=== PATIENT | female | born 1970 | race Hispanic/Latino ===

== ENCOUNTER 2018-03-15 07:34 | Emergency (ER) | payer OTHER, SELFPAY ==
--- NOTE | 2018-03-15 09:02 | RAD REPORT ---
EXAM DESCRIPTION: CT - Stone Protocol - 03/15/2018 8:40 am CLINICAL HISTORY: Abdominal pain. Back pain for 1 week COMPARISON: 2016 TECHNIQUE: Computed axial tomography of the abdomen pelvis was obtained without oral or IV contrast. Lack of IV and oral contrast limits evaluation of solid organs, bowel, and vessels. Coronal reformat abhishek images were obtained and reviewed. All CT scans are performed using dose optimization technique as appropriate and may include automated exposure control or mA/KV adjustment according to patient size. FINDINGS: Small bilateral renal calculi are present. Mild to moderate left hydronephrosis is seen. W ithin the distal left ureter is a 5 millimeter calculus Hounsfield unit 850 The liver, spleen, pancreas and adrenals appear grossly normal There is no evidence of diverticulitis. A 4 centimeter soft tissue structure within the cecum is with out significant change IMPRESSION: 5 millimeter calculus distal left ureter resulting in mild to moderate left hydronephros is 4 centimeter soft tissue structure within the cecum without obvious change from the prior exam. This may represent stool or a mass
[2018-03-15] MEDS ORDERED: TAMSULOSIN 0.4 MG SR CAP ONE (09:28)
--- NOTE | 2018-03-15 09:38 | EDPHYS ---
Physician Documentation [facility] Name: Louise Copeland Age: 47 yrs Sex: Female : 1970 Arrival Date: 03/15/2018 Time: 07:37 Bed 7 Private MD: Srinath Starks R ED Physician Ricardo Angeles HPI: 03/15 09:41 This 47 yrs old Female presents to ER via Ambulatory with complaints of Back snw Pain, Abdominal Pain. 08:02 The symptoms are located in the left low back and left mid back. Onset: The snw symptoms/episode began/occurred gradually, 1 week(s) ago, and became worse this morning, awoke pt at 4 o'clock. The pain radiates to the left low back. Associated signs and symptoms: Pertinent positives: none. The problem was sustained from unknown cause. Severity of symptoms: At their worst the symptoms were moderate, severe. The patient has experienced a previous episode. It is unknown whether or not the patient has recently seen a physician. hx of rheumatoid arthritis, + T#3, gabapentin, steroids, hx of kidney stones, . 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 - Social history:: Smoking status: Patient/guardian denies using tobacco. - Ebola Screening: : Patient negative for fever greater than or equal to 101.5 degrees Fahrenheit, and additional compatible Ebola Virus Disease symptoms Patient denies exposure to infectious person Patient denies travel to an Ebola-affected area in the 21 days before illness onset No symptoms or risks identified at this time. ROS: 08:01 Constitutional: Negative for fever, chills, and weight loss, Eyes: Negative for injury, snw pain, redness, and discharge, ENT: Negative for injury, pain, and discharge, Neck: Negative for injury, pain, and swelling, Cardiovascular: Negative for chest pain, palpitations, and edema, Respiratory: Negative for shortness of breath, cough, wheezing, and pleuritic chest pain, : Negative for injury, bleeding, discharge, and swelling, positive dysuria last week MS/Extremity: Negative for injury and deformity, Skin: Negative for injury, rash, and discoloration, Neuro: Negative for headache, weakness, numbness, tingling, and seizure. 08:01 Abdomen/GI: Positive for abdominal pain, of the suprapubic area and left lower quadrant. 08:01 Back: Positive for flank pain, on the left. Exam: 08:01 Constitutional: This is a well developed, well nourished patient who is awake, alert, snw and in no acute distress. Head/Face: Normocephalic, atraumatic. Eyes: Pupils equal round and reactive to light, extra-ocular motions intact. Lids and lashes normal. Conjunctiva and sclera are non-icteric and not injected. Cornea within normal limits. Periorbital areas with no swelling, redness, or edema. ENT: Nares patent. No nasal discharge, no septal abnormalities noted. Tympanic membranes are normal and external auditory canals are clear. Oropharynx with no redness, swelling, or masses, exudates, or evidence of obstruction, uvula midline. Mucous membranes moist. Neck: Trachea midline, no thyromegaly or masses palpated, and no cervical lymphadenopathy. Supple, full range of motion without nuchal rigidity, or vertebral point tenderness. No Meningismus. Chest/axilla: Normal chest wall appearance and motion. Nontender with no deformity. No lesions are appreciated. Cardiovascular: Regular rate and rhythm with a normal S1 and S2. No gallops, murmurs, or rubs. Normal PMI, no JVD. No pulse deficits. Respiratory: Lungs have equal breath sounds bilaterally, clear to auscultation and percussion. No rales, rhonchi or wheezes noted. No increased work of breathing, no retractions or nasal flaring. Abdomen/GI: Soft, non-tender, with normal bowel sounds. No distension or tympany. No guarding or rebound. No evidence of tenderness throughout. Back: No spinal tenderness. No costovertebral tenderness. Full range of motion. Skin: Warm, dry with normal turgor. Normal color with no rashes, no lesions, and no evidence of cellulitis. MS/ Extremity: Pulses equal, no cyanosis. Neurovascular intact. Full, normal range of motion. Neuro: Awake and alert, GCS 15, oriented to person, place, time, and situation. Cranial nerves II-XII grossly intact. Motor strength 5/5 in all extremities. Sensory grossly intact. Cerebellar exam normal. Normal gait. Psych: Awake, alert, with orientation to person, place and time. Behavior, mood, and affect are within normal limits. Vital Signs: 09:00 BP 144 / 70; Pulse 88; Resp 16 S; Temp 98.1; Pulse Ox 97% ; iw MDM: 07:51 Patient medically screened. snw 09:40 Data reviewed: vital signs, nurses notes. Data interpreted: Pulse oximetry: on room air snw is 97 %. Interpretation: normal. Counseling: I had a detailed discussion with the patient and/or guardian regarding: the historical points, exam findings, and any diagnostic results supporting the discharge/admit diagnosis, the presence of at least one elevated blood pressure reading (>120/80) during this emergency department visit, lab results, radiology results, the need for outpatient follow up, for definitive care, to return to the emergency department if symptoms worsen or persist or if there are any questions or concerns that arise at home. Special discussion: Based on the patient's Hx, exam, and Dx evaluation, there is no indication for emergent surgery or inpatient Tx. It is understood by the patient/guardian that if the Sx's persist or worsen they need to return immediately for re-evaluation. Based on the history and exam findings, there is no indication for further emergent testing or inpatient evaluation. I discussed with the patient/guardian the need to see the primary care provider for further evaluation of the symptoms. 03/15 08:00 Order name: Urine Microscopic Only snw 03/15 08:00 Order name: Urine Culture snw 03/15 08:00 Order name: CT Stone Protocol; Complete Time: 09:09 snw 03/15 08:04 Order name: Urine Dipstick--Ancillary (enter results) eb 03/15 08:04 Order name: Urine --Ancillary (enter results) eb 03/15 08:00 Order name: Urine Test (obtain specimen); Complete Time: 08:06 snw Administered Medications: 09:32 Drug: Flomax 0.4 mg Route: PO; hj 09:51 Follow up: Response: No adverse reaction Point of Care Testing: Urine : 08:06 hCG Reading: Negative; eb Disposition: 03/16 07:10 Co-signature as Attending Physician, Ricardo Angeles MD. Disposition: 03/15/18 09:38 Discharged to Home. Impression: Hydronephrosis with renal and ureteral calculous obstruction, Essential (primary) hypertension. - Condition is Stable. - Discharge Instructions: Hypertension, Kidney Stones, Hydronephrosis, Dietary Guidelines to Help Prevent Kidney Stones, DASH Eating Plan, Managing Your High Blood Pressure. - Prescriptions for Tylenol- Codeine #3 300-30 mg Oral Tablet - take 2 tablets by ORAL route every 6 hours As needed; 15 tablet. Zofran 4 mg Oral Tablet - take 1 tablet by ORAL route every 12 hours As needed; 20 tablet. Flomax 0.4 mg Oral Capsule, Sust. Release 24 hr - take 1 capsule by ORAL route once daily 1/2 hour following the same meal each day; 15 capsule. Cipro 500 mg Oral Tablet - take 1 tablet by ORAL route every 12 hours for 7 days; 14 tablet. - Work release form, Medication Reconciliation Form, Thank You Letter, Antibiotic Education, Prescription Opioid Use form. - Follow up: Srinath Starks MD; When: 1 - 2 days; Reason: Recheck today's complaints, Continuance of care, Re-evaluation by your physician. Follow up: Emergency Department; When: As needed; Reason: Worsening of condition. Signatures: Dispatcher [employer] EDMS Jerry Huerta RN RN sg Therrien, Shelly, LIFE INSURANCE UNDERWRITER-C LIFE INSURANCE UNDERWRITER-Csnw Maria Luisa Dean RN RN iw Joaquin, Henry, RN RN hj Starr, Gregory, MD MD gs Corrections: (The following items were deleted from the chart) 03/15 09:50 09:38 03/15/2018 09:38 Discharged to Home. Impression: Hydronephrosis with renal and hj ureteral calculous obstruction; Essential (primary) hypertension. Condition is Stable. Forms are Medication Reconciliation Form, Thank You Letter, Antibiotic Education, Prescription Opioid Use. Follow up: Srinath Starks; When: 1 - 2 days; Reason: Recheck today's complaints, Continuance of care, Re-evaluation by your physician. Follow up: Emergency Department; When: As needed; Reason: Worsening of condition. snw
--- NOTE | 2018-03-15 09:38 | ER ---
Nurse's Notes [facility] Name: Louise Copeland Age: 47 yrs Sex: Female : 1970 Arrival Date: 03/15/2018 Time: 07:37 Bed 7 Private MD: Srinath Starks R Diagnosis: Hydronephrosis with renal and ureteral calculous obstruction;Essential (primary) hypertension Presentation: 03/15 08:00 Presenting complaint: Patient states: pt c/o left lower back pain, difficulty iw urinating. Transition of care: patient was not received from another setting of care. Onset of symptoms was March 15, 2018. Risk Assessment: Do you want to hurt yourself or someone else? Patient reports no desire to harm self or others. Initial Sepsis Screen: Does the patient meet any 2 criteria? No. Patient's initial sepsis screen is negative. Does the patient have a suspected source of infection? No. Patient's initial sepsis screen is negative. Care prior to arrival: None. 08:00 Method Of Arrival: Ambulatory iw 08:00 Acuity: RUMA 3 iw Triage Assessment: 09:48 General: Appears in no apparent distress. uncomfortable, Behavior is calm, cooperative, hj appropriate for age. Pain: Complains of pain in left mid back and left low back and left lower quadrant and suprapubic area. Musculoskeletal: Amputation of . 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 - Social history:: Smoking status: Patient/guardian denies using tobacco. - Ebola Screening: : Patient negative for fever greater than or equal to 101.5 degrees Fahrenheit, and additional compatible Ebola Virus Disease symptoms Patient denies exposure to infectious person Patient denies travel to an Ebola-affected area in the 21 days before illness onset No symptoms or risks identified at this time. Screenin:00 Abuse screen: Denies threats or abuse. Denies injuries from another. Nutritional hj screening: No deficits noted. Tuberculosis screening: No symptoms or risk factors identified. Fall Risk None identified. Vital Signs: 09:00 BP 144 / 70; Pulse 88; Resp 16 S; Temp 98.1; Pulse Ox 97% ; iw ED Course: 07:37 Patient arrived in ED. mr 07:38 Srinath Starks MD is Private Physician. mr 07:51 [facility] snw 07:51 Ricardo Angeles MD is Attending Physician. snw 08:00 Urine collected: clean catch specimen, carolyn colored. eb 08:21 Jerry Huerta, RN is Primary Nurse. sg 08:31 Triage completed. iw 08:35 CT completed. Patient tolerated procedure well. Patient moved to CT via wheelchair. vr Patient moved back from CT. 08:40 CT Stone Protocol In Process Unspecified. EDMS 09:37 Srinath Starks MD is Referral Physician. snw 09:49 No provider procedures requiring assistance completed. Patient did not have IV access hj during this emergency room visit. 09:49 Arm band placed on right wrist. hj 09:49 Patient has correct armband on for positive identification. Placed in gown. Bed in low hj position. Call light in reach. Side rails up X 1. Administered Medications: 09:32 Drug: Flomax 0.4 mg Route: PO; hj 09:51 Follow up: Response: No adverse reaction hj Point of Care Testing: Urine : 08:06 hCG Reading: Negative; eb Outcome: 09:38 Discharge ordered by . snw 09:50 Discharged to home ambulatory. hj 09:50 Condition: stable 09:50 Discharge instructions given to patient, Instructed on discharge instructions, follow up and referral plans. medication usage, Demonstrated understanding of instructions, follow-up care, medications, Prescriptions given X 4. 09:50 Patient left the ED. hj Signatures: Dispatcher [employer] EDME Jerry Huerta RN RN Evie Shine FNP-C FNP-Keila Gonzalez mr DeanMaria Luisa RN RN iw Davis, Victoria vr Mihai Gtz RN RN Marcia Bailey
[2018-03-15 09:55] VITALS: BP 144/70; TEMP 98.1; O2SAT 97
[2018-03-15 10:26] LABS: Urine Bacteria >50 /HPF (<20); Urine RBC TNTC /HPF (NONE SEEN)
[2018-03-15 10:27] LABS: Calcium Oxalate Crystals- Ur PRESENT (NONE SEEN); Urine Amorphous Sediment 1+ /HPF (NONE SEEN); Urine Culture Reflex Order NOT NEEDED; Urine Mucus 1+ /HPF (NONE SEEN)
[2018-03-15 15:44] LABS: Urine Blood 3+ (NEG); Urine Glucose NEGATIVE (NEG); Urine Protein 2+ (NEG); Urine pH 5.5 (5.0-7.0)
== END 2018-03-15 09:50 | disposition home or self-care (01) ==
LOC: ER 07:34
DX: N13.2 Hydronephrosis with renal and ureteral calculous obstruction (principal); I10 Essential (primary) hypertension; E11.9 Type 2 diabetes mellitus without complications; Z79.82 Long term (current) use of aspirin; Z79.4 Long term (current) use of insulin; Z88.8 Allergy status to other drugs, medicaments and biological substances
CPT/HCPCS: 74176; 76377; 81003; 81015; 81025; 87086; 87088; 99284

== ENCOUNTER 2019-04-18 23:10 | Emergency (ER) | payer SELFPAY ==
[2019-04-19] MEDS ORDERED: NA CHLORIDE 0.9% 1,000 ML ONE (00:18)
[2019-04-19] MEDS ORDERED: KETOROLAC 30 MG/ML INJ ONE (00:18)
[2019-04-19] MEDS ORDERED: ONDANSETRON 4 MG/2 ML VIAL ONE (00:18)
[2019-04-19] MEDS ORDERED: MORPHINE 4 MG/ML SYR ONE (00:18)
[2019-04-19 00:39] LABS: Absolute Lymphocytes (CBC) 2.4 K/uL (0.7-4.9); Basophils % 0.4 % (0-1.3); Hematocrit 37.3 % (36.0-45.0); Lymphocytes % 20.2 % (15.3-44.8); Protime INR 1.03; RBC Red Blood Cell Count 4.04 M/uL (3.86-4.86)
[2019-04-19 00:52] LABS: ALT/SGPT 24 U/L (12-78); AST/SGOT 12 U/L (15-37); Albumin 3.4 g/dL (3.4-5.0); Alkaline Phosphatase 92 U/L (45-117); BUN Blood Urea Nitrogen 21 mg/dL (7-18); Bicarbonate 23 mmol/L (21-32); Bilirubin Direct < 0.1 mg/dL (0-0.2); Bilirubin Total 0.2 mg/dL (0.2-1.0); Glucose Level 216 mg/dL (74-106); Lipase 81 U/L (73-393); Magnesium 1.9 mg/dL (1.8-2.4); NT PRO-BNP 97 pg/mL (<125); Potassium 3.8 mmol/L (3.5-5.1); Protein, Total 6.8 g/dL (6.4-8.2); Sodium Level 142 mmol/L (136-145); Troponin (Emerg Dept Use Only) < 0.02 ng/mL (0.0-0.045)
[2019-04-19] MEDS ORDERED: AZITHROMYCIN 250 MG TAB ONE (02:13)
[2019-04-19] MEDS ORDERED: CEFTRIAXONE/SWI 1gm 1 GM/10 ML SYR ONE (02:14)
--- NOTE | 2019-04-19 03:10 | ER ---
Nurse's Notes [facility] Name: Louise Copeland Age: 48 yrs Sex: Female : 1970 Arrival Date: 04/18/2019 Time: 23:15 Bed 19 Private MD: Diagnosis: Chest pain on breathing;Chondrocostal junction syndrome [Tietze];Pneumonia due to other specified bacteria-pneumonitis;Gastro-esophageal reflux disease Presentation: 04/18 23:15 Presenting complaint: EMS states: "She is having left sided chest pain due to a jd3 possible left sided rib fracture. she was crying with pain on the scene saying she had left sided rib pain that wrapped around the left side of the chest. we started an IV and gave a total of 150 mcg of Fentanyl.". Transition of care: patient was not received from another setting of care. Onset of symptoms was April 18, 2019. Risk Assessment: Do you want to hurt yourself or someone else? Patient reports no desire to harm self or others. Initial Sepsis Screen: Does the patient meet any 2 criteria? No. Patient's initial sepsis screen is negative. Does the patient have a suspected source of infection? No. Patient's initial sepsis screen is negative. Care prior to arrival: Medication(s) given: Fentanyl 150 mcg. IV initiated. 20 GA, in the left antecubital area. 23:15 Method Of Arrival: EMS: [facility] jd3 23:15 Acuity: RUMA 3 jd3 Triage Assessment: 23:17 General: Appears in no apparent distress. uncomfortable, Behavior is calm, cooperative, cc3 appropriate for age. Pain: Complains of pain in left breast and left lateral anterior chest and left lateral posterior chest and chest. EENT: No signs and/or symptoms were reported regarding the EENT system. Neuro: Level of Consciousness is awake, alert, obeys commands, Oriented to person, place, time, situation, Appropriate for age. Cardiovascular: Heart tones S1 S2 present Capillary refill < 3 seconds Patient's skin is warm and dry. Respiratory: Airway is patent Respiratory effort is even, unlabored, Respiratory pattern is regular, symmetrical. GI: Abdomen is round non-distended. : No signs and/or symptoms were reported regarding the genitourinary system. Derm: Skin is intact, is healthy with good turgor, Skin is pink, warm \\T\\ dry. normal. Musculoskeletal: Circulation, motion, and sensation intact. Range of motion: intact in all extremities. 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 - Social history:: Smoking status: Patient uses tobacco products, smokes one-half pack cigarettes per day. - Ebola Screening: : Patient negative for fever greater than or equal to 101.5 degrees Fahrenheit, and additional compatible Ebola Virus Disease symptoms. - Family history:: not pertinent. Screenin:17 Abuse screen: Denies threats or abuse. Denies injuries from another. Nutritional cc3 screening: No deficits noted. Tuberculosis screening: No symptoms or risk factors identified. Fall Risk Ambulatory Aid- None/Bed Rest/Nurse Assist (0 pts). Gait- Normal/Bed Rest/Wheelchair (0 pts) Mental Status- Oriented to own ability (0 pts). Assessment: 23:17 General: see triage assessment. cc3 04/19 00:40 Reassessment: Patient appears in no apparent distress at this time. Patient and/or cc3 family updated on plan of care and expected duration. Pain level reassessed. Patient is alert, oriented x 3, equal unlabored respirations, skin warm/dry/pink. Patient's daughter named Eleni left her mobile number [phone]. 01:18 Reassessment: Patient appears in no apparent distress at this time. Patient and/or cc3 family updated on plan of care and expected duration. Pain level reassessed. Patient is alert, oriented x 3, equal unlabored respirations, skin warm/dry/pink. Patient states feeling better. Patient states symptoms have improved. 02:20 Reassessment: Patient appears in no apparent distress at this time. Patient and/or cc3 family updated on plan of care and expected duration. Pain level reassessed. Patient is alert, oriented x 3, equal unlabored respirations, skin warm/dry/pink. Patient states feeling better. Patient states symptoms have improved. 03:50 Reassessment: Patient appears in no apparent distress at this time. Patient and/or cc3 family updated on plan of care and expected duration. Pain level reassessed. Patient is alert, oriented x 3, equal unlabored respirations, skin warm/dry/pink. Dr. Salazar discharged the patient home with prescriptions given. IV cannula removed and patient left ER vitally stable and ambulatory with her . Incentive spirometry given to patient and taught how to use it. No valuables left in the patient's room. Patient denies pain at this time. Patient states feeling better. Patient states symptoms have improved. Vital Signs: 04/18 23:21 BP 124 / 57; Pulse 85; Resp 20 S; Temp 98.9(O); Pulse Ox 97% on R/A; Weight 111.58 kg jd3 (R); Height 5 ft. 4 in. (162.56 cm) (R); Pain 10; 04/19 00:30 BP 114 / 56; Pulse 75; Resp 16 S; Pulse Ox 99% on R/A; cc3 01:15 BP 111 / 51; Pulse 72; Resp 17 S; Pulse Ox 96% on R/A; cc3 02:25 BP 112 / 54; Pulse 75; Resp 17 S; Pulse Ox 97% on R/A; cc3 03:40 BP 115 / 57; Pulse 78; Resp 18 S; Pulse Ox 96% on R/A; cc3 04/18 23:21 Body Mass Index 42.23 (111.58 kg, 162.56 cm) jd3 ED Course: 04/18 23:15 Patient arrived in ED. jd3 23:17 Love Kaye is Primary Nurse. cc3 23:17 Patient has correct armband on for positive identification. Placed in gown. Bed in low cc3 position. Call light in reach. Side rails up X2. 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 Pulse ox on. NIBP on. 23:19 Pablo Salazar MD is Attending Physician. alicia 23:20 Triage completed. jd3 23:20 Maintain EMS IV. Dressing intact. Good blood return noted. Site clean \\T\\ dry. Gauge \\T\\ cc 3 site: gauge 20 left ACV. 23:23 Arm band placed on. jd3 04/19 01:19 XRAY Chest (1 view) In Process Unspecified. EDMS 02:22 CT Chest For PE Angio In Process Unspecified. EDMS 03:11 Huey Irvin MD is Referral Physician. alicia 03:11 Mali Meade MD is Referral Physician. alicia 03:50 No provider procedures requiring assistance completed. IV discontinued, intact, cc3 bleeding controlled, No redness/swelling at site. Pressure dressing applied. Administered Medications: 00:20 Drug: NS 0.9% 1000 ml Route: IV; Rate: 1 bolus; Site: left antecubital; cc3 01:30 Follow up: Response: No adverse reaction; IV Status: Completed infusion; IV Intake: cc3 1000ml 00:20 Drug: TORadol 30 mg Route: IVP; Site: left antecubital; cc3 01:00 Follow up: Response: No adverse reaction; Pain is decreased cc3 00:25 Drug: morphine 4 mg Route: IVP; Site: left antecubital; cc3 01:00 Follow up: Response: No adverse reaction; Pain is decreased; RASS: Alert and Calm (0) cc3 00:30 Drug: Zofran 4 mg Route: IVP; Site: left antecubital; cc3 01:00 Follow up: Response: No adverse reaction; Nausea is decreased cc3 02:40 Drug: Zithromax 500 mg Route: PO; cc3 03:30 Follow up: Response: No adverse reaction cc3 02:42 Drug: Rocephin 1 grams Route: IV; Rate: per protocol; Site: left antecubital; cc3 02:50 Follow up: Response: No adverse reaction; IV Status: Completed infusion; IV Intake: [id number] Intake: 01:30 IV: 1000ml; Total: 1000ml. cc3 02:50 IV: 10ml; Total: 1010ml. cc3 Outcome: 03:06 Discharge ordered by . alicia 03:50 Discharged to home ambulatory, with family. cc3 03:50 Condition: stable 03:50 Discharge instructions given to patient, family, Instructed on discharge instructions, follow up and referral plans. medication usage, Demonstrated understanding of instructions, follow-up care, medications, Prescriptions given X 5 03:59 Patient left the ED. cc3 Signatures: Dispatcher [employer] EDMS Pablo Salazar MD MD cha Davies, Jonathon, RN RN Love Fajardo cc3 Corrections: (The following items were deleted from the chart) 00:14 04/18 23:15 Presenting complaint: EMS states: "She is having left sided chest pain due jd3 to a possible left sided rib fracture. she was crying with pain on the scene saying she had left sided rib pain that rapped around the left side of the chest. we started an IV and gave a total of 150 mcg of Fentanyl." jd3
--- NOTE | 2019-04-19 03:12 | EDPHYS ---
Physician Documentation [facility] Name: Louise Copeland Age: 48 yrs Sex: Female : 1970 Arrival Date: 04/18/2019 Time: 23:15 Bed 19 Private MD: ED Physician Pablo Salazar HPI: 04/18 23:54 This 48 yrs old Female presents to ER via EMS with complaints of chest wall alicia pain and sob. 23:54 The patient or guardian reports chest pain that is located primarily in the anterior [facility] chest wall. Onset: The symptoms/episode began/occurred just prior to arrival. The pain radiates to left back. Associated signs and symptoms: Pertinent positives: cough, shortness of breath. The chest pain is described as aching, sharp. Duration: The patient or guardian reports multiple episodes, that wax and wane. Modifying factors: The symptoms are alleviated by remaining still, the symptoms are aggravated by breathing, cough, deep breath, movement, palpation of area, running, twisting torso, walking. Severity of pain: At its worst the pain was moderate in the emergency department the pain is unchanged. 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 - Social history:: Smoking status: Patient uses tobacco products, smokes one-half pack cigarettes per day. - Ebola Screening: : Patient negative for fever greater than or equal to 101.5 degrees Fahrenheit, and additional compatible Ebola Virus Disease symptoms. - Family history:: not pertinent. ROS: 23:54 Constitutional: Negative for fever, chills, and weight loss, Eyes: Negative for injury, alicia pain, redness, and discharge, ENT: Negative for injury, pain, and discharge, Neck: Negative for injury, pain, and swelling, Respiratory: Negative for shortness of breath, cough, wheezing, and pleuritic chest pain, Abdomen/GI: Negative for abdominal pain, nausea, vomiting, diarrhea, and constipation, Back: Negative for injury and pain, : Negative for injury, bleeding, discharge, and swelling, MS/Extremity: Negative for injury and deformity, Skin: Negative for injury, rash, and discoloration, Neuro: Negative for headache, weakness, numbness, tingling, and seizure, Psych: Negative for depression, anxiety, suicide ideation, homicidal ideation, and hallucinations, Allergy/Immunology: Negative for hives, rash, and allergies, Endocrine: Negative for neck swelling, polydipsia, polyuria, polyphagia, and marked weight changes, Hematologic/Lymphatic: Negative for swollen nodes, abnormal bleeding, and unusual bruising. 23:54 Cardiovascular: Positive for chest pain, of the chest. Exam: 23:54 Constitutional: This is a well developed, well nourished patient who is awake, alert, alicia and in no acute distress. Head/Face: Normocephalic, atraumatic. Eyes: Pupils equal round and reactive to light, extra-ocular motions intact. Lids and lashes normal. Conjunctiva and sclera are non-icteric and not injected. Cornea within normal limits. Periorbital areas with no swelling, redness, or edema. ENT: Nares patent. No nasal discharge, no septal abnormalities noted. Tympanic membranes are normal and external auditory canals are clear. Oropharynx with no redness, swelling, or masses, exudates, or evidence of obstruction, uvula midline. Mucous membranes moist. Neck: Trachea midline, no thyromegaly or masses palpated, and no cervical lymphadenopathy. Supple, full range of motion without nuchal rigidity, or vertebral point tenderness. No Meningismus. Cardiovascular: Regular rate and rhythm with a normal S1 and S2. No gallops, murmurs, or rubs. Normal PMI, no JVD. No pulse deficits. Respiratory: Lungs have equal breath sounds bilaterally, clear to auscultation and percussion. No rales, rhonchi or wheezes noted. No increased work of breathing, no retractions or nasal flaring. Abdomen/GI: Soft, non-tender, with normal bowel sounds. No distension or tympany. No guarding or rebound. No evidence of tenderness throughout. Back: No spinal tenderness. No costovertebral tenderness. Full range of motion. Skin: Warm, dry with normal turgor. Normal color with no rashes, no lesions, and no evidence of cellulitis. Neuro: Awake and alert, GCS 15, oriented to person, place, time, and situation. Cranial nerves II-XII grossly intact. Motor strength 5/5 in all extremities. Sensory grossly intact. Cerebellar exam normal. Normal gait. Psych: Awake, alert, with orientation to person, place and time. Behavior, mood, and affect are within normal limits. 23:54 Chest/axilla: Inspection: normal, Palpation: tenderness, that is moderate, of the left lateral posterior chest, left lateral anterior chest and left breast, Axilla: are normal, Breasts: are normal, no acute changes, Lymph nodes: lymphadenopathy is not appreciated. 23:54 Musculoskeletal/extremity: Circulation is intact in all extremities. Sensation intact. Compartment Syndrome exam of affected extremity: is normal. Weight bearing: able to fully bear weight, DVT Exam: no pain, no tenderness, negative Homans' sign noted on exam, no appreciated bluish discoloration, no erythema, no increased warmth, swelling. Vital Signs: 23:21 BP 124 / 57; Pulse 85; Resp 20 S; Temp 98.9(O); Pulse Ox 97% on R/A; Weight 111.58 kg jd3 (R); Height 5 ft. 4 in. (162.56 cm) (R); Pain 4/10; 04/19 00:30 BP 114 / 56; Pulse 75; Resp 16 S; Pulse Ox 99% on R/A; cc3 01:15 BP 111 / 51; Pulse 72; Resp 17 S; Pulse Ox 96% on R/A; cc3 02:25 BP 112 / 54; Pulse 75; Resp 17 S; Pulse Ox 97% on R/A; cc3 03:40 BP 115 / 57; Pulse 78; Resp 18 S; Pulse Ox 96% on R/A; cc3 04/18 23:21 Body Mass Index 42.23 (111.58 kg, 162.56 cm) jd3 MDM: 04/18 23:19 Patient medically screened. [facility] 23:59 Data reviewed: vital signs, nurses notes, lab test result(s), EKG, radiologic studies, [facility] CT scan, plain films. 04/18 23:53 Order name: Basic Metabolic Panel [facility] 04/18 23:53 Order name: CBC with Diff [facility] 04/18 23:53 Order name: LFT's [facility] 04/18 23:53 Order name: Magnesium [facility] 04/18 23:53 Order name: NT PRO-BNP [facility] 04/18 23:53 Order name: PT-INR; Complete Time: 01:49 [facility] 04/18 23:53 Order name: Troponin (emerg Dept Use Only) [facility] 04/18 23:53 Order name: Lipase [facility] 04/18 23:54 Order name: Basic Metabolic Panel [facility] 04/18 23:54 Order name: CBC with Automated Diff; Complete Time: 01:49 [facility]ND 04/18 23:54 Order name: Liver (Hepatic) Function [facility] 04/18 23:54 Order name: Magnesium [facility] 04/18 23:54 Order name: NT PRO-BNP [facility] 04/19 01:51 Order name: Blood Culture Adult (2) [facility] 04/18 23:53 Order name: XRAY Chest (1 view) [facility] 04/18 23:53 Order name: EKG; Complete Time: 23:55 [facility] 04/18 23:53 Order name: Cardiac monitoring; Complete Time: 23:57 [facility] 04/18 23:53 Order name: EKG - Nurse/Tech; Complete Time: 00:50 [facility] 04/18 23:53 Order name: IV Saline Lock; Complete Time: 00:50 [facility] 04/18 23:53 Order name: Labs collected and sent; Complete Time: 00:50 [facility] 04/18 23:53 Order name: O2 Per Protocol; Complete Time: 23:57 [facility] 04/18 23:53 Order name: O2 Sat Monitoring; Complete Time: 23:57 [facility] 04/18 23:53 Order name: CT Chest For PE Angio [facility] 04/19 01:51 Order name: INCENTIVE SPIROMETRY alicia Administered Medications: 04/19 00:20 Drug: NS 0.9% 1000 ml Route: IV; Rate: 1 bolus; Site: left antecubital; cc3 01:30 Follow up: Response: No adverse reaction; IV Status: Completed infusion; IV Intake: cc3 1000ml 00:20 Drug: TORadol 30 mg Route: IVP; Site: left antecubital; cc3 01:00 Follow up: Response: No adverse reaction; Pain is decreased cc3 00:25 Drug: morphine 4 mg Route: IVP; Site: left antecubital; cc3 01:00 Follow up: Response: No adverse reaction; Pain is decreased; RASS: Alert and Calm (0) cc3 00:30 Drug: Zofran 4 mg Route: IVP; Site: left antecubital; cc3 01:00 Follow up: Response: No adverse reaction; Nausea is decreased cc3 02:40 Drug: Zithromax 500 mg Route: PO; cc3 03:30 Follow up: Response: No adverse reaction cc3 02:42 Drug: Rocephin 1 grams Route: IV; Rate: per protocol; Site: left antecubital; cc3 02:50 Follow up: Response: No adverse reaction; IV Status: Completed infusion; IV Intake: [id number] Disposition: 04/19/19 03:06 Discharged to Home. Impression: Chest pain on breathing, Chondrocostal junction syndrome [Tietze], Pneumonia due to other specified bacteria - pneumonitis, Gastro-esophageal reflux disease. - Condition is Stable. - Discharge Instructions: Chest Wall Pain, Costochondritis, Type 2 Diabetes Mellitus, Diagnosis, Adult, Nonspecific Chest Pain, [id number]. - Prescriptions for Tylenol- Codeine #3 300-30 mg Oral Tablet - take 2 tablet by ORAL route every 6 hours As needed; 30 tablet. Diclofenac Sodium 75 mg Oral Tablet, Delayed Release (E.C.) - take 1 tablet by ORAL route 2 times per day; 20 tablet. Zithromax 500 mg Oral Tablet - take 1 tablet by ORAL route once daily for 4 days; 4 tablet. Protonix 40 mg Oral Tablet - take 1 tablet by ORAL route once daily; 30 tablet. Albuterol Sulfate 90 mcg/actuation - inhale 1-2 puff by INHALATION route every 4-6 hours; 1 Inhaler. - Medication Reconciliation Form, Thank You Letter, Antibiotic Education, Prescription Opioid Use form. - Follow up: Private Physician; When: 2 - 3 days; Reason: Recheck today's complaints, Continuance of care, Re-evaluation by your physician. Follow up: Huey Irvin MD; When: 2 - 3 days; Reason: Recheck today's complaints, Re-evaluation by your physician. Follow up: Mali Meade MD; When: 2 - 3 days; Reason: Recheck today's complaints, Re-evaluation by your physician. - Problem is new. - Symptoms have improved. Signatures: Dispatcher [employer] Pablo Landry MD MD cha Davies, Jonathon, RN RN jd3 Love Kaye cc3 Corrections: (The following items were deleted from the chart) 03:11 03:06 04/19/2019 03:06 Discharged to Home. Impression: Chest pain on breathing; alicia Chondrocostal junction syndrome [Tietze]; Pneumonia due to other specified bacteria - pneumonitis. Condition is Stable. Discharge Instructions: Chest Wall Pain, Costochondritis, Type 2 Diabetes Mellitus, Diagnosis, Adult, Nonspecific Chest Pain, [id number]. Prescriptions for Tylenol-Codeine #3 300-30 mg Oral Tablet - take 2 tablet by ORAL route every 6 hours As needed; 30 tablet, Diclofenac Sodium 75 mg Oral Tablet, Delayed Release (E.C.) - take 1 tablet by ORAL route 2 times per day; 20 tablet, Zithromax 500 mg Oral Tablet - take 1 tablet by ORAL route once daily for 4 days; 4 tablet. and Forms are Medication Reconciliation Form, Thank You Letter, Antibiotic Education, Prescription Opioid Use. Follow up: Private Physician; When: 2 - 3 days; Reason: Recheck today's complaints, Continuance of care, Re-evaluation by your physician. Problem is new. Symptoms have improved. [facility] 03:11 03:11 04/19/2019 03:06 Discharged to Home. Impression: Chest pain on breathing; alicia Chondrocostal junction syndrome [Tietze]; Pneumonia due to other specified bacteria - pneumonitis. Condition is Stable. Discharge Instructions: Chest Wall Pain, Costochondritis, Type 2 Diabetes Mellitus, Diagnosis, Adult, Nonspecific Chest Pain, [id number]. Prescriptions for Tylenol-Codeine #3 300-30 mg Oral Tablet - take 2 tablet by ORAL route every 6 hours As needed; 30 tablet, Diclofenac Sodium 75 mg Oral Tablet, Delayed Release (E.C.) - take 1 tablet by ORAL route 2 times per day; 20 tablet, Zithromax 500 mg Oral Tablet - take 1 tablet by ORAL route once daily for 4 days; 4 tablet, Protonix 40 mg Oral Tablet - take 1 tablet by ORAL route once daily; 30 tablet, Albuterol Sulfate 90 mcg/actuation - inhale 1-2 puff by INHALATION route every 4-6 hours; 1 Inhaler. and Forms are Medication Reconciliation Form, Thank You Letter, Antibiotic Education, Prescription Opioid Use. Follow up: Private Physician; When: 2 - 3 days; Reason: Recheck today's complaints, Continuance of care, Re-evaluation by your physician. Follow up: Huey Irvin; When: 2 - 3 days; Reason: Recheck today's complaints, Re-evaluation by your physician. Follow up: Mali Meade; When: 2 - 3 days; Reason: Recheck today's complaints, Re-evaluation by your physician. Problem is new. Symptoms have improved. alicia 03:59 03:11 04/19/2019 03:06 Discharged to Home. Impression: Chest pain on breathing; cc3 Chondrocostal junction syndrome [Tietze]; Pneumonia due to other specified bacteria - pneumonitis; Gastro-esophageal reflux disease. Condition is Stable. Discharge Instructions: Chest Wall Pain, Costochondritis, Type 2 Diabetes Mellitus, Diagnosis, Adult, Nonspecific Chest Pain, [id number]. Prescriptions for Tylenol-Codeine #3 300-30 mg Oral Tablet - take 2 tablet by ORAL route every 6 hours As needed; 30 tablet, Diclofenac Sodium 75 mg Oral Tablet, Delayed Release (E.C.) - take 1 tablet by ORAL route 2 times per day; 20 tablet, Zithromax 500 mg Oral Tablet - take 1 tablet by ORAL route once daily for 4 days; 4 tablet, Protonix 40 mg Oral Tablet - take 1 tablet by ORAL route once daily; 30 tablet, Albuterol Sulfate 90 mcg/actuation - inhale 1-2 puff by INHALATION route every 4-6 hours; 1 Inhaler. and Forms are Medication Reconciliation Form, Thank You Letter, Antibiotic Education, Prescription Opioid Use. Follow up: Private Physician; When: 2 - 3 days; Reason: Recheck today's complaints, Continuance of care, Re-evaluation by your physician. Follow up: Huey Irvin; When: 2 - 3 days; Reason: Recheck today's complaints, Re-evaluation by your physician. Follow up: Mali Meade; When: 2 - 3 days; Reason: Recheck today's complaints, Re-evaluation by your physician. Problem is new. Symptoms have improved. alicia
[2019-04-19 04:29] VITALS: TEMP 98.9
[2019-04-19 04:31] VITALS: BP 111/51; O2SAT 96
--- NOTE | 2019-04-19 07:26 | EKG ---
Test Date: 2019-04-19 Test Time: 00:02:46 Blackjack Supervisor: PAOLO MEASUREMENT RESULTS: Intervals: Rate: 77 MD: 144 QRSD: 76 QT: 406 QTc: 459 [place]: P: 50 MD: 144 QRS: 49 T: 67 INTERPRETIVE STATEMENTS: Normal sinus rhythm Normal ECG Compared to ECG 06/14/2017 15:53:27 No significant changes Electronically Signed On 04-19-19 07:25:13 CDT by Jacob Sorenson
--- NOTE | 2019-04-19 08:06 | RAD REPORT ---
EXAM DESCRIPTION: RAD - Chest Single View - 04/19/2019 12:24 am CLINICAL HISTORY: CHEST PAIN Chest pain. COMPARISON: Abdomen 1 View (KUB) dated 03/24/2018; Chest Single View dated 06/14/2017; Chest For Pe A ngio dated 04/19/2019 FINDINGS: Portable technique limits examination quality. The lungs are grossly clear. The heart is normal in size. No displaced fractures. IMPRESSION: No acute intrathoracic process suspected.
--- NOTE | 2019-04-19 10:18 | RAD REPORT ---
EXAM DESCRIPTION: CT Angiography Chest With Intravenous Contrast CLINICAL HISTORY: The patient is 48 years old and is Female; CHEST PAIN TECHNIQUE: Axial computed tomographic angiography images of the chest with intravenous contrast usin g pulmonary embolism protocol. Sagittal and coronal reformatted images were created and reviewed. This CT exam was performed using one or more of the following dose reduction techniques: automated exposure control, adjustment of the mA and/or kV according to patient size, and/or use of iterative reconstruction technique. MIP reconstructed images were created and reviewed. COMPARISON: CTA chest dated 06/14/2017. FINDINGS: PULMONARY ARTERIES: Unremarkable. No pulmonary embolism. AORTA: No acute findings. No thoracic aortic aneurysm. LUNGS: Traction bronchiectasis in the right apical lung zone. Scattered groundglass opacities thro ughout the apical lung zones on dependent aspect of the mid and lower lung zones. Dependent subsegmen lex atelectasis is also present. No pleural effusion or pneumothorax. PLEURAL SPACE: See above. HEART: The heart is normal in size. No pericardial effusion. No evidence of RV dysfunction. MEDIASTINUM: Small hiatal hernia and gaseous distention of the esophagus. BONES/JOINTS: Chronic fracture deformity of the anterior aspect of the left second rib. Chronic no nunion fracture of the lateral aspect of the left seventh and eighth ribs. Diffuse osteopenia. No dislocation. SOFT TISSUES: Unremarkable. LYMPH NODES: Unremarkable. No enlarged lymph nodes. IMPRESSION: 1. No acute pulmonary embolism. 2. Right apical chronic lung changes and scattered atelectasis, scarring or edema. 3. Small hiatal hernia and distention of the esophagus. 4. Remote fracture deformities of multiple left ribs. Electronically signed by: Nabil Stokes DO 04/19/2019 2:40 AM CDT Due to temporary technical issues with the PACS/Fluency reporting system, reports are being signed by the in house radiologist as a courtesy to ensure prompt reporting. The interpreting radiologist is f yokoly responsible for the content of the report.
== END 2019-04-19 03:59 | disposition home or self-care (01) ==
LOC: ER 23:10
DX: J15.8 Pneumonia due to other specified bacteria (principal); M94.0 Chondrocostal junction syndrome [Tietze]; K21.9 Gastro-esophageal reflux disease without esophagitis; F17.210 Nicotine dependence, cigarettes, uncomplicated; E11.40 Type 2 diabetes mellitus with diabetic neuropathy, unspecified; Z79.4 Long term (current) use of insulin; Z79.82 Long term (current) use of aspirin; Z88.8 Allergy status to other drugs, medicaments and biological substances
CPT/HCPCS: 36415; 71045; 71275; 80048; 80076; 83690; 83735; 83880; 84484; 85025; 85610; 87040; 93005; 96361; 96374; 96375; 99284; J0696; J2405; J7030; Q9967

== ENCOUNTER 2019-06-05 08:27 | Emergency (ER) | payer SELFPAY ==
[2019-06-05] MEDS ORDERED: MORPHINE 4 MG/ML SYR ONE (08:49)
[2019-06-05] MEDS ORDERED: LEVALBUTEROL 1.25 MG/3 ML NEB ONE (08:49)
[2019-06-05 09:05] LABS: Absolute Lymphocytes (CBC) 2.9 K/uL (0.7-4.9); Basophils % 0.8 % (0-1.3); Lymphocytes % 27.6 % (15.3-44.8); MPV 8.2 fL (7.6-11.3); RBC Red Blood Cell Count 4.16 M/uL (3.86-4.86)
[2019-06-05 09:29] LABS: BUN Blood Urea Nitrogen 15 mg/dL (7-18); Bicarbonate 22 mmol/L (21-32); Glucose Level 264 mg/dL (74-106); NT PRO-BNP 88 pg/mL (<125); Potassium 3.5 mmol/L (3.5-5.1); Sodium Level 140 mmol/L (136-145); Troponin (Emerg Dept Use Only) < 0.02 ng/mL (0.0-0.045)
--- NOTE | 2019-06-05 09:57 | RAD REPORT ---
EXAM DESCRIPTION: RAD - Chest Pa And Lat (2 Views) - 06/05/2019 9:45 am CLINICAL HISTORY: Cough;Chest pain, shortness of breath COMPARISON: April 19, 2019 TECHNIQUE: PA and lateral views of the chest were obtained. FINDINGS: The lungs are clear of a focal mass or consolidation. Lung markings match comparison. He art size is normal and central vasculature is within normal limits. No pleural effusion or pneumotho rax seen. No acute bony finding noted. No aortic abnormality. IMPRESSION: No acute cardiopulmonary process. No significant interval change.
--- NOTE | 2019-06-05 10:56 | RAD REPORT ---
EXAM DESCRIPTION: CT - Chest For Pe Angio - 06/05/2019 10:26 am CLINICAL HISTORY: Dyspnea;Chest pain COMPARISON: Chest For Pe Angio dated 04/19/2019; Chest For Pe Angio dated 06/14/2017; Chest Pa And La t (2 Views) dated 06/05/2019 TECHNIQUE: Dynamically enhanced 3 mm thick images of the chest were obtained during administration o f approximately 150mL Isovue 370 IV contrast. Coronal and oblique MIP reconstruction images were gene rated and reviewed. Exam utilizes a protocol to evaluate the pulmonary arterial tree. All CT scans are performed using dose optimization technique as appropriate and may include automated exposure control or mA/KV adjustment according to patient size. FINDINGS: No pulmonary emboli are identified. The aorta as imaged shows no acute or suspicious finding. No pericardial thickening or effusion. No focal mass or consolidation. There is scattered hazy ground-glass opacification in the lung martinez favored to be atelectasis. Alveolitis or alveolar edema lesser in likelihood. No pleural effusion or pleural thickening. No mediastinal or hilar suspicious masses. No chest wall mass. No axillary lymphadenopathy. Patient has multiple left-sided rib fractures that have been previously detailed. The left sixth rib fracture is now all partially displaced. There is some early callus formation at this site. IMPRESSION: No pulmonary emboli identified. Hazy lung parenchymal opacification favored to be atelectasis rather than alveolitis or alveolar jason a. Previously detailed a left-sided rib fractures are again noted. The left sixth rib fracture is now pa rtially displaced. There is early callus formation seen so this is no longer likely a moving fracture .
--- NOTE | 2019-06-05 11:22 | EDPHYS ---
Physician Documentation [facility] Name: Louise Copeland Age: 48 yrs Sex: Female : 1970 Arrival Date: 06/05/2019 Time: 08:31 Bed 7 Private MD: ED Physician Jose Alfredo Plummer HPI: 06/05 09:08 This 48 yrs old Female presents to ER via Ambulatory with complaints of Chest rn Pain, Back Pain, Shortness Of Breath. 09:08 The patient or guardian reports chest pain that is located primarily in the anterior rn chest wall. Onset: 1 week(s) ago. The pain radiates to Associated signs and symptoms: Pertinent positives: cough, shortness of breath, Pertinent negatives: abdominal pain, dizziness, lightheadedness, near syncope, palpitations, recent travel, syncope, vomiting. The chest pain is described as sharp, stabbing. Duration: The patient or guardian reports multiple episodes, that are intermittent. Modifying factors: The symptoms are alleviated by nothing. the symptoms are aggravated by cough, deep breath, movement, palpation of area. Severity of pain: At its worst the pain was moderate in the emergency department the pain is unchanged. The patient has experienced similar episodes in the past. Reports symptoms since October, but worse over last week, no fever, + smoker, on steroids chronically. No diaphoresis. Reports took abx a month ago and didn't get better. No trauma. . Historical: - Allergies: 08:40 Folic Acid; hb - Home Meds: 08:40 aspirin 81 mg Oral chew 1 tab once daily [Active]; gabapentin Oral [Active]; Lyrica hb Oral [Active]; Novolin 70/30 [place] Sub-Q 70-30 unit/mL [Active]; - PMHx: 08:40 Diabetes - IDDM; neuropathy; Rheumatoid Arthritis; hb - PSHx: 08:40 Cholecystectomy; Tubal ligation; Hysterectomy; bladder; hb - Immunization history:: Adult Immunizations up to date. - Social history:: Smoking status: Patient uses tobacco products, smokes one pack cigarettes per day. - Ebola Screening: : No symptoms or risks identified at this time. - Family history:: not pertinent. - Hospitalizations: : No recent hospitalization is reported. ROS: 09:08 Constitutional: Negative for fever, chills, and weight loss, Eyes: Negative for injury, rn pain, redness, and discharge, Neck: Negative for injury, pain, and swelling, Cardiovascular: Negative for palpitations, and edema, Respiratory: + for shortness of breath, cough, wheezing, and pleuritic chest pain, Abdomen/GI: Negative for abdominal pain, nausea, vomiting, diarrhea, and constipation, MS/Extremity: Negative for injury and deformity, Skin: Negative for injury, rash, and discoloration, Neuro: Negative for headache, weakness, numbness, tingling, and seizure. Exam: 08:51 ECG was reviewed by the Attending Physician. rn 09:08 Constitutional: This is a well developed, well nourished patient who is awake, alert, rn and in no acute distress. Head/Face: Normocephalic, atraumatic. Eyes: Pupils equal round and reactive to light, extra-ocular motions intact. Lids and lashes normal. Conjunctiva and sclera are non-icteric and not injected. Cornea within normal limits. Periorbital areas with no swelling, redness, or edema. ENT: MMM, no stridor Cardiovascular: Regular rate and rhythm. No pulse deficits. Respiratory: Lungs have equal breath sounds bilaterally, clear to auscultation. No increased work of breathing, no retractions or nasal flaring. + splinting with deep breath Abdomen/GI: soft, non-tender MS/ Extremity: Pulses equal, no cyanosis. Neurovascular intact. Full, normal range of motion. Equal circumference. Neuro: Awake and alert, GCS 15, oriented to person, place, time, and situation. Cranial nerves II-XII grossly intact. Motor strength 5/5 in all extremities. Sensory grossly intact. Cerebellar exam normal. Vital Signs: 08:39 BP 143 / 86; Pulse 93; Resp 16; Temp 97.9; Pulse Ox 97% on R/A; Pain 8/10; hb 09:00 BP 111 / 54; Pulse 100; Resp 20 S; Pulse Ox 100% on Nebulizer Mask; aa5 10:00 BP 116 / 70; Pulse 99; Resp 18 S; Pulse Ox 95% on R/A; aa5 MDM: 08:31 Patient medically screened. rn 10:33 Differential diagnosis: acute pericarditis, anxiety, chest wall pain, costochondritis, rn esophagitis, gastritis, gastroesophageal reflux disease (GERD), peptic ulcer disease, pericarditis, pleurisy, pneumonia, pneumothorax, pulmonary embolus. Data reviewed: vital signs, nurses notes, lab test result(s), EKG, radiologic studies, plain films. Data interpreted: Pulse oximetry: on room air is 100 %. Interpretation: normal. Counseling: I had a detailed discussion with the patient and/or guardian regarding: the historical points, exam findings, and any diagnostic results supporting the discharge/admit diagnosis, lab results, radiology results, the need for outpatient follow up, to return to the emergency department if symptoms worsen or persist or if there are any questions or concerns that arise at home. 11:19 Counseling: I had a detailed discussion with the patient and/or guardian regarding: rn smoking cessation. ED course: CT without acute findings, ekg without ischemia, trop neg, normal WBC and procalcitonin, counseled her about smoking and need to stop as chronic symptoms tend to be more smoking related. . 06/05 08:44 Order name: Blood Culture Adult (2) rn 06/05 08:44 Order name: BMP; Complete Time: 09:38 rn 06/05 08:44 Order name: CBC with Diff; Complete Time: 09:24 rn 06/05 08:44 Order name: NT PRO-BNP; Complete Time: 09:38 rn 06/05 08:44 Order name: Troponin (emerg Dept Use Only); Complete Time: 09:38 rn 06/05 08:44 Order name: Procalcitonin; Complete Time: 09:42 rn 06/05 08:44 Order name: XRAY Chest Pa And Lat (2 Views); Complete Time: 10:23 rn 06/05 08:44 Order name: EKG; Complete Time: 08:45 rn 06/05 08:44 Order name: Cardiac monitoring; Complete Time: 08:46 rn 06/05 08:44 Order name: EKG - Nurse/Tech; Complete Time: 08:47 rn 06/05 08:44 Order name: IV Saline Lock; Complete Time: 08:47 rn 06/05 09:57 Order name: CT Chest For PE Angio; Complete Time: 11:04 rn 06/05 08:44 Order name: Labs collected and sent; Complete Time: 08:47 rn 06/05 08:44 Order name: O2 Per Protocol; Complete Time: 08:47 rn 10/06 08:44 Order name: O2 Sat Monitoring; Complete Time: 08:47 rn EC:51 Rate is 94 beats/min. Rhythm is regular. QRS [place] is Normal. NH interval is normal. QRS rn interval is normal. QT interval is normal. No Q waves. T waves are Normal. No ST changes noted. Clinical impression: NSR w/ Non-specific ST/T Changes. Interpreted by me. Reviewed by me. Administered Medications: 08:50 Drug: Xopenex (3) 1.25 mg Route: Inhalation; aa5 09:00 Follow up: Response: No adverse reaction aa5 08:50 Drug: morphine 4 mg Route: IVP; Site: left forearm; aa5 09:00 Follow up: Response: No adverse reaction aa5 Disposition: 06/05/19 11:21 Discharged to Home. Impression: Chest pain, unspecified, Pleurisy. - Condition is Stable. - Discharge Instructions: Nonspecific Chest Pain, Pleurisy. - Medication Reconciliation Form, Thank You Letter, Antibiotic Education, Prescription Opioid Use form. - Follow up: Private Physician; When: As needed; Reason: Recheck today's complaints, Re-evaluation by your physician. - Problem is an ongoing problem. - Symptoms have improved. Signatures: Dispatcher [employer] EDMS Jose Alfredo Plummer MD MD rn Calderon, Audri RN RN 5 Amena Holly RN RN hb Corrections: (The following items were deleted from the chart) 08:40 08:40 Social history: Smoking status: Patient/guardian denies using tobacco, hb hb 12:00 11:21 06/05/2019 11:21 Discharged to Home. Impression: Chest pain, unspecified; hb Pleurisy. Condition is Stable. Forms are Medication Reconciliation Form, Thank You Letter, Antibiotic Education, Prescription Opioid Use. Follow up: Private Physician; When: As needed; Reason: Recheck today's complaints, Re-evaluation by your physician. Problem is an ongoing problem. Symptoms have improved. rn
--- NOTE | 2019-06-05 11:22 | ER ---
Nurse's Notes [facility] Name: Louise Copeland Age: 48 yrs Sex: Female : 1970 Arrival Date: 06/05/2019 Time: 08:31 Bed 7 Private MD: Diagnosis: Chest pain, unspecified;Pleurisy Presentation: 06/05 08:40 Presenting complaint: Child states: SOB and chest pain that radiates to mid back since hb October, worse over last week. Transition of care: patient was not received from another setting of care. Onset of symptoms is unknown. Risk Assessment: Do you want to hurt yourself or someone else? Patient reports no desire to harm self or others. Initial Sepsis Screen: Does the patient meet any 2 criteria? No. Patient's initial sepsis screen is negative. Does the patient have a suspected source of infection? No. Patient's initial sepsis screen is negative. Care prior to arrival: None. 08:40 Method Of Arrival: Ambulatory hb 08:40 Acuity: RUMA 3 hb Historical: - Allergies: 08:40 Folic Acid; hb - Home Meds: 08:40 aspirin 81 mg Oral chew 1 tab once daily [Active]; gabapentin Oral [Active]; Lyrica hb Oral [Active]; Novolin 70/30 [place] Sub-Q 70-30 unit/mL [Active]; - PMHx: 08:40 Diabetes - IDDM; neuropathy; Rheumatoid Arthritis; hb - PSHx: 08:40 Cholecystectomy; Tubal ligation; Hysterectomy; bladder; hb - Immunization history:: Adult Immunizations up to date. - Social history:: Smoking status: Patient uses tobacco products, smokes one pack cigarettes per day. - Ebola Screening: : No symptoms or risks identified at this time. - Family history:: not pertinent. - Hospitalizations: : No recent hospitalization is reported. Screenin:45 Abuse screen: Denies threats or abuse. Nutritional screening: No deficits noted. aa5 Tuberculosis screening: No symptoms or risk factors identified. Fall Risk None identified. Assessment: 08:40 General: Appears uncomfortable, Behavior is calm, cooperative. Pain: Complains of pain aa5 in chest Pain radiates to thoracic area Pain currently is 8 out of 10 on a pain scale. Quality of pain is described as sharp, Pain began months ago but got worse 1 week ago Is intermittent, Aggravated by increased activity. Neuro: Level of Consciousness is awake, alert, obeys commands, Oriented to person, place, time, situation. Cardiovascular: Heart tones S1 S2 present Rhythm is regular. Respiratory: Reports shortness of breath cough that is productive, Airway is patent Respiratory effort is even, unlabored, Respiratory pattern is regular, symmetrical, Breath sounds are clear bilaterally. GI: Abdomen is round non-distended, Bowel sounds present X 4 quads. Abd is soft and non tender X 4 quads. : No signs and/or symptoms were reported regarding the genitourinary system. EENT: No signs and/or symptoms were reported regarding the EENT system. Derm: Skin is pink, warm \T\ dry. Musculoskeletal: Range of motion: intact in all extremities. 09:00 Reassessment: Patient is alert, oriented x 3, equal unlabored respirations, skin aa5 warm/dry/pink. Awaiting chest x-ray at this time. . 10:00 Reassessment: Patient is alert, oriented x 3, equal unlabored respirations, skin aa5 warm/dry/pink. Patient states feeling better. 11:55 Reassessment: Patient is alert, oriented x 3, equal unlabored respirations, skin aa5 warm/dry/pink. Vital Signs: 08:39 BP 143 / 86; Pulse 93; Resp 16; Temp 97.9; Pulse Ox 97% on R/A; Pain 8/10; hb 09:00 BP 111 / 54; Pulse 100; Resp 20 S; Pulse Ox 100% on Nebulizer Mask; aa5 10:00 BP 116 / 70; Pulse 99; Resp 18 S; Pulse Ox 95% on R/A; aa5 ED Course: 08:31 Patient arrived in ED. as 08:31 Jose Alfredo Plummer MD is Attending Physician. rn 08:40 Arm band placed on. hb 08:40 Patient has correct armband on for positive identification. Bed in low position. Call aa5 light in reach. Side rails up X2. court recording monitor on. Pulse ox on. NIBP on. 08:41 Triage completed. hb 08:46 Lesli Marquez, RN is Primary Nurse. aa5 08:50 Initial lab(s) drawn, by me, sent to lab. Inserted saline lock: 20 gauge in left aa5 forearm, using aseptic technique. Blood collected. 08:50 First set of blood cultures drawn by me. aa5 08:50 Patient maintains SpO2 saturation greater than 95% on room air. aa5 09:05 Second set of blood cultures drawn by me. aa5 09:45 XRAY Chest Pa And Lat (2 Views) In Process Unspecified. EDMS 10:19 CT completed. Patient tolerated procedure well. Patient moved back from CT. bq 10:21 CT Chest For PE Angio In Process Unspecified. EDMS 11:55 No provider procedures requiring assistance completed. IV discontinued, intact, aa5 bleeding controlled, No redness/swelling at site. Pressure dressing applied. Administered Medications: 08:50 Drug: Xopenex (3) 1.25 mg Route: Inhalation; aa5 09:00 Follow up: Response: No adverse reaction aa5 08:50 Drug: morphine 4 mg Route: IVP; Site: left forearm; aa5 09:00 Follow up: Response: No adverse reaction aa5 Outcome: 11:21 Discharge ordered by . rn 11:55 Discharged to home ambulatory. aa5 11:55 Condition: improved 11:55 Discharge instructions given to patient, Instructed on discharge instructions, follow up and referral plans. Demonstrated understanding of instructions, follow-up care. 12:00 Patient left the ED. hb Signatures: Dispatcher [employer] EDMS Michaela Reis Amelia as Nieto, Roman, MD MD rn Calderon, Audri, RN RN aa5 Amena Holly RN RN hb Corrections: (The following items were deleted from the chart) 08:40 08:40 Social history: Smoking status: Patient/guardian denies using tobacco, hb hb 08:42 08:40 Presenting complaint: Child states: SOB and chest pain that radiates to mid back hb x 1 week hb
[2019-06-05 12:15] VITALS: TEMP 97.9
[2019-06-05 12:17] VITALS: BP 116/70; O2SAT 95
--- NOTE | 2019-06-06 09:51 | EKG ---
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
== END 2019-06-05 12:00 | disposition home or self-care (01) ==
LOC: ER 08:27
DX: R09.1 Pleurisy (principal); E11.9 Type 2 diabetes mellitus without complications; F17.210 Nicotine dependence, cigarettes, uncomplicated; Z79.4 Long term (current) use of insulin; Z79.82 Long term (current) use of aspirin; Z88.8 Allergy status to other drugs, medicaments and biological substances
CPT/HCPCS: 36415; 71046; 71275; 80048; 83880; 84145; 84484; 85025; 87040; 93005; 96374; 99285; Q9967

== ENCOUNTER 2020-02-05 08:47 | Emergency (ER) | payer OTHER ==
--- OUTSIDE RECORDS SUMMARY | 2020-02-05 08:50 | XMS REPORT | Continuity of Care Document ---
:1970 Author Organization [facility] Address [address] [place] [address] Dr. Yin [address] [place] [id number] Care Team Providers Name Role Phone Unavailable Unavailable Unavailable Problems This patient has no known problems. Allergies, Adverse Reactions, Alerts This patient has no known allergies or adverse reactions. Medications This patient has no known medications. Procedures This patient has no known procedures. Results This patient has no known results.
[2020-02-05] MEDS ORDERED: ONDANSETRON 4 MG/2 ML VIAL ONE (09:19)
[2020-02-05] MEDS ORDERED: FENTANYL CITR 100 MCG/2 ML ONE ×2 (09:19→12:42)
[2020-02-05] MEDS ORDERED: NA CHLORIDE 0.9% 1,000 ML ONE ×2 (09:19→11:32)
[2020-02-05 09:35] LABS: Absolute Lymphocytes (CBC) 0.9 K/uL (0.7-4.9); Basophils % 0.2 % (0-1.3); Hematocrit 43.6 % (36.0-45.0); Lymphocytes % 4.8 % (15.3-44.8); MPV 8.6 fL (7.6-11.3); RBC Red Blood Cell Count 5.08 M/uL (3.86-4.86)
[2020-02-05 09:48] LABS: Albumin 3.2 g/dL (3.4-5.0); Bilirubin Total 0.4 mg/dL (0.2-1.0); Potassium 3.6 mmol/L (3.5-5.1); Protein, Total 7.1 g/dL (6.4-8.2)
[2020-02-05 10:50] LABS: Urine Blood NEGATIVE (NEG); Urine Glucose 1+ (NEG); Urine Protein NEGATIVE (NEG); Urine Specific Gravity 1.025 (1.005-1.030)
[2020-02-05 11:19] LABS: Urine Bacteria <20 /HPF (<20); Urine Culture Reflex Order NOT NEEDED; Urine Mucus LIGHT /HPF (NONE SEEN); Urine RBC NONE SEEN /HPF (NONE SEEN)
--- NOTE | 2020-02-05 13:40 | ER ---
Nurse's Notes [facility] Name: Louise Copeland Age: 49 yrs Sex: Female : 1970 Arrival Date: 02/05/2020 Time: 08:49 Bed 2 Private MD: Diagnosis: Dehydration;Pain in joint-bilateral knee, bilateral wrist, bilateral hips, bialteral shoulders;Rheumatoid arthritis, unspecified Presentation: 02/04 08:49 Chief complaint: EMS states: Pt hx of RA, reports that pain flared up at approx 0200 ph this morning, c/o pain to ankles, knees, hips, hands, elbows, shoulders and back, swelling present in R knee, pt also reports that she has been unable to urinate today. Coronavirus screen: Patient denies a cough. Patient denies shortness of breath or difficulty breathing. Patient denies measured and/or subjective temperature greater than 100.4F prior to today's visit. Patient denies travel on a cruise ship or to a country the [facility] currently lists as an affected area. Patient denies contact with known and/or suspected case of COVID-19. Ebola Screen: No symptoms or risks identified at this time. Initial Sepsis Screen: Does the patient meet any 2 criteria? No. Patient's initial sepsis screen is negative. Does the patient have a suspected source of infection? No. Patient's initial sepsis screen is negative. Risk Assessment: Do you want to hurt yourself or someone else? Patient reports no desire to harm self or others. Onset of symptoms was February 05, 2020. 08:49 Method Of Arrival: EMS: [facility] ph 08:49 Acuity: RUMA 3 ph Historical: - Allergies: 08:54 Folic Acid; ph - Home Meds: 08:54 aspirin 81 mg Oral chew 1 tab once daily [Active]; gabapentin Oral [Active]; Tramadol ph Oral [Active]; prednisone 5 mg Oral tab 1 tab 2 times per day [Active]; Tradjenta oral oral [Active]; insulin [Active]; - PMHx: 08:54 Diabetes - IDDM; neuropathy; Rheumatoid Arthritis; ph - PSHx: 08:54 Cholecystectomy; Tubal ligation; Hysterectomy; bladder; ph - Immunization history:: Adult Immunizations unknown. - Social history:: Smoking status: Patient reports the use of cigarette tobacco products, smokes one-half pack cigarettes per day. Screenin:00 Abuse screen: Denies threats or abuse. Denies injuries from another. Nutritional ph screening: No deficits noted. Tuberculosis screening: No symptoms or risk factors identified. Fall Risk None identified. Assessment: 09:34 General: Appears in no apparent distress. uncomfortable, well groomed, Behavior is ph calm, cooperative, appropriate for age, Denies fever, feeling ill. Pain: Complains of pain in bilateral ankles, knees, hips, shoulders, elbows, hands, and back. Neuro: Level of Consciousness is awake, alert, obeys commands, Oriented to person, place, time, situation. Cardiovascular: Capillary refill < 3 seconds in bilateral fingers Patient's skin is warm and dry. Respiratory: Airway is patent Respiratory effort is even, unlabored, Respiratory pattern is regular, symmetrical. GI: Reports nausea, Patient currently denies abdominal pain, diarrhea. : Reports difficulty urinating this morning. Derm: Skin is intact, is healthy with good turgor, Skin is pink, warm \\T\\ dry. Musculoskeletal: Circulation, motion, and sensation intact. Range of motion: intact in all extremities. 09:36 Reassessment: Patient appears in no apparent distress at this time. Patient and/or ph family updated on plan of care and expected duration. Pain level reassessed. Patient is alert, oriented x 3, equal unlabored respirations, skin warm/dry/pink. Pt reports that pain has decreased after IV medication, states, " I still hurt but it took the edge off." Awaiting lab results. 11:29 Reassessment: Patient appears in no apparent distress at this time. Patient and/or ph family updated on plan of care and expected duration. Pain level reassessed. Pt drowsy but awakens easily, requesting more pain medication, states, " I get good and relaxed and then my legs start hurting again." BP low at this time, see vitals, informed pt that I am unable to give her additional pain meds at this time d/t her BP being low, NS bolus administered. 12:37 Reassessment: Patient appears in no apparent distress at this time. Patient and/or ph family updated on plan of care and expected duration. Pain level reassessed. Patient is alert, oriented x 3, equal unlabored respirations, skin warm/dry/pink. Pt continues to c/o pain, see MAR for medication orders. 13:30 Reassessment: Patient appears in no apparent distress at this time. Patient and/or ph family updated on plan of care and expected duration. Pain level reassessed. Patient is alert, oriented x 3, equal unlabored respirations, skin warm/dry/pink. Vital Signs: 08:49 BP 98 / 78; Pulse 111; Resp 18; Temp 98.7; Pulse Ox 92% on R/A; Weight 90.72 kg; Height ph 5 ft. 4 in. (162.56 cm); 09:37 BP 90 / 52; Pulse 110; Resp 18; Pulse Ox 95% on 2 lpm NC; ph 10:30 BP 119 / 63; Pulse 109; Resp 16; Pulse Ox 94% on 2 lpm NC; ph 11:27 BP 88 / 63; Pulse 98; Resp 18; Pulse Ox 95% on 2 lpm NC; ph 12:30 BP 99 / 65; Pulse 74; Resp 18; Pulse Ox 96% on 2 lpm NC; ph 13:03 BP 102 / 62; Pulse 94; Resp 16; Pulse Ox 96% on 2 lpm NC; ph 08:49 Body Mass Index 34.33 (90.72 kg, 162.56 cm) ph ED Course: 08:49 Patient arrived in ED. ph 08:52 Triage completed. ph 08:57 Antwon Ann NP is PHCP. pm1 08:57 Jose Alfredo Plummer MD is Attending Physician. pm1 09:00 Юлия Padilla RN is Primary Nurse. ph 09:00 Arm band placed on Patient placed in an exam room, in a wheelchair. ph 09:00 Patient has correct armband on for positive identification. Bed in low position. Call ph light in reach. Side rails up X 1. Pulse ox on. NIBP on. Door closed. Noise minimized. Warm blanket given. 09:37 No provider procedures requiring assistance completed. ph 10:44 Urine collected: clean catch specimen, clear. dh3 14:20 IV discontinued, intact, bleeding controlled, No redness/swelling at site. Pressure ph dressing applied. Administered Medications: 09:10 Not Given (Physician Discretion; changed to 1 L): NS 0.9% 500 ml IV at bolus once pm1 09:33 Drug: Zofran (Ondansetron) 4 mg Route: IVP; Site: right forearm; ph 10:00 Follow up: Response: No adverse reaction; Nausea is decreased ph 09:34 Drug: fentaNYL (PF) 50 mcg Route: IVP; Site: right forearm; ph 10:00 Follow up: Response: No adverse reaction; Pain is decreased ph 09:34 Drug: NS 0.9% 1000 ml Route: IV; Rate: 1000 ml; Site: right forearm; ph 11:00 Follow up: Response: No adverse reaction; IV Status: Completed infusion; IV Intake: ph 1000ml 10:19 Drug: fentaNYL (PF) 25 mcg Route: IVP; Site: right forearm; ph 10:45 Follow up: Response: No adverse reaction; Pain is decreased ph 11:27 Drug: NS 0.9% 1000 ml Route: IV; Rate: 1000 ml; Site: right forearm; ph 13:15 Follow up: Response: No adverse reaction; IV Status: Completed infusion; IV Intake: ph 1000ml 12:37 Drug: fentaNYL (PF) 25 mcg Route: IVP; Site: right forearm; ph 13:00 Follow up: Response: No adverse reaction; Pain is decreased ph 14:06 Drug: [place] 10 mg-325 mg 1 tabs Route: PO; hb 14:15 Follow up: Response: No adverse reaction ph Intake: 11:00 IV: 1000ml; Total: 1000ml. ph 13:15 IV: 1000ml; Total: 2000ml. ph Outcome: 13:40 Discharge ordered by MD. pm1 14:25 Patient left the ED. eb 14:25 Discharged to home via wheelchair, with family. ph 14:25 Condition: good 14:25 Discharge instructions given to patient, Instructed on discharge instructions, follow up and referral plans. medication usage, Demonstrated understanding of instructions, follow-up care, medications, Prescriptions given X 1. Signatures: Юлия Padilla RN RN ph Antwon Ann, JEFFREY [employer]ACING [employer] MARKER pm1 Amena Holly RN RN Sobia Dennis [facility] Marcia Bailey Corrections: (The following items were deleted from the chart) 11:29 11:27 BP 88 / 63; Pulse 101bpm; Resp 18bpm; Pulse Ox 95% 2 lpm Nasal Cannula; ph ph
--- NOTE | 2020-02-05 13:41 | EDPHYS ---
Physician Documentation [facility] Name: Louise Copeland Age: 49 yrs Sex: Female : 1970 Arrival Date: 02/05/2020 Time: 08:49 Bed 2 Private MD: ED Physician Jose Alfredo Plummer HPI: 02/04 09:06 This 49 yrs old Female presents to ER via EMS with complaints of Pain All Over.pm1 09:06 Onset: The symptoms/episode began/occurred this morning, at 02:00. Associated signs and pm1 symptoms: Pertinent positives: decreased fluid intake and urination this AM, Pertinent negatives: abdominal pain, cough, diarrhea, fever, headache, shortness of breath, vomiting. Modifying factors: The patient symptoms are alleviated by nothing, [place] has worked well in the past for RA pain, but is no longer taking it. Typically one pill would last for 2-3 days, the patient symptoms are aggravated by movement. The patient has experienced similar episodes in the past, several times, and the symptoms today are exactly the same, to previous RA flare up. Patient currently taking steroids for RA management and tramadol PRN for pain. Took some tramadol prior to arrival without relief. Historical: - Allergies: 08:54 Folic Acid; ph - Home Meds: 08:54 aspirin 81 mg Oral chew 1 tab once daily [Active]; gabapentin Oral [Active]; Tramadol ph Oral [Active]; prednisone 5 mg Oral tab 1 tab 2 times per day [Active]; Tradjenta oral oral [Active]; insulin [Active]; - PMHx: 08:54 Diabetes - IDDM; neuropathy; Rheumatoid Arthritis; ph - PSHx: 08:54 Cholecystectomy; Tubal ligation; Hysterectomy; bladder; ph - Immunization history:: Adult Immunizations unknown. - Social history:: Smoking status: Patient reports the use of cigarette tobacco products, smokes one-half pack cigarettes per day. ROS: 09:06 Constitutional: Negative for fever, chills, and weight loss, Eyes: Negative for injury, pm1 pain, redness, and discharge, ENT: Negative for injury, pain, and discharge, Neck: Negative for injury, pain, and swelling, Cardiovascular: Negative for chest pain, palpitations, and edema, Respiratory: Negative for shortness of breath, cough, wheezing, and pleuritic chest pain, Abdomen/GI: Negative for abdominal pain, nausea, vomiting, diarrhea, and constipation, Back: Negative for injury and pain. 09:06 Skin: Negative for injury, rash, and discoloration, Neuro: Negative for headache, weakness, numbness, tingling, and seizure. 09:06 : Negative for urinary symptoms, burning with urination, vaginal itching. 09:06 MS/extremity: Positive for joint pain to bilateral knees, hips, shoulders, and wrists. Exam: 09:06 Constitutional: This is a well developed, well nourished patient who is awake, alert, pm1 and in no acute distress. Head/Face: Normocephalic, atraumatic. Neck: Trachea midline, no thyromegaly or masses palpated, and no cervical lymphadenopathy. Supple, full range of motion without nuchal rigidity, or vertebral point tenderness. No Meningismus. Chest/axilla: Normal chest wall appearance and motion. Nontender with no deformity. No lesions are appreciated. 09:06 Abdomen/GI: Soft, non-tender, with normal bowel sounds. No distension or tympany. No guarding or rebound. No evidence of tenderness throughout. Back: No spinal tenderness. No costovertebral tenderness. Full range of motion. Skin: Warm, dry with normal turgor. Normal color with no rashes, no lesions, and no evidence of cellulitis. 09:06 Cardiovascular: Exam negative for acute changes, Rate: tachycardic, actual rate is 111 bpm, Rhythm: regular, Pulses: no pulse deficits are appreciated, Edema: is not appreciated. 09:06 Respiratory: Exam negative for acute changes, respiratory distress, shortness of breath. 09:06 Musculoskeletal/extremity: Extremities: grossly normal except: tenderness, bilateral knees, hips, wrists, shoulders, ROM: intact in all extremities, limited active range of motion due to pain, limited passive range of motion due to pain, Circulation is intact in all extremities. Sensation intact. 09:06 Neuro: Exam negative for acute changes, Orientation: is normal, Motor: is normal, moves all fours, Sensation: is normal, no obvious gross deficits. Vital Signs: 08:49 BP 98 / 78; Pulse 111; Resp 18; Temp 98.7; Pulse Ox 92% on R/A; Weight 90.72 kg; Height ph 5 ft. 4 in. (162.56 cm); 09:37 BP 90 / 52; Pulse 110; Resp 18; Pulse Ox 95% on 2 lpm NC; ph 10:30 BP 119 / 63; Pulse 109; Resp 16; Pulse Ox 94% on 2 lpm NC; ph 11:27 BP 88 / 63; Pulse 98; Resp 18; Pulse Ox 95% on 2 lpm NC; ph 12:30 BP 99 / 65; Pulse 74; Resp 18; Pulse Ox 96% on 2 lpm NC; ph 13:03 BP 102 / 62; Pulse 94; Resp 16; Pulse Ox 96% on 2 lpm NC; ph 08:49 Body Mass Index 34.33 (90.72 kg, 162.56 cm) ph MDM: 08:58 Patient medically screened. pm1 13:22 Data reviewed: vital signs. Data interpreted: Pulse oximetry: on room air is 96 %. pm1 Interpretation:. 13:25 Counseling: I had a detailed discussion with the patient and/or guardian regarding: lab pm1 results. 13:36 ED course: Patient with elevated WBC likely due to RA flare up and steroid daily pm1 prescription. No swelling present to joints. No clinical impression of septic arthritis . 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 Tramadol not effective for her pain. It was prescribed pm1 01/31/2020. Will prescribe Tylenol #3. 02/04 09:04 Order name: CBC with Diff; Complete Time: 09:47 pm1 02/04 09:04 Order name: CMP; Complete Time: 09:59 pm1 02/04 09:59 Order name: Urine Microscopic Only; Complete Time: 11:20 pm1 02/04 10:40 Order name: Urine Dipstick--Ancillary (enter results); Complete Time: 10:54 hb 02/04 09:04 Order name: IV Saline Lock; Complete Time: 09:33 pm1 02/04 09:10 Order name: Urine Dipstick-Ancillary (obtain specimen); Complete Time: 10:44 pm1 Administered Medications: 09:10 Not Given (Physician Discretion; changed to 1 L): NS 0.9% 500 ml IV at bolus once pm1 09:33 Drug: Zofran (Ondansetron) 4 mg Route: IVP; Site: right forearm; ph 10:00 Follow up: Response: No adverse reaction; Nausea is decreased ph 09:34 Drug: fentaNYL (PF) 50 mcg Route: IVP; Site: right forearm; ph 10:00 Follow up: Response: No adverse reaction; Pain is decreased ph 09:34 Drug: NS 0.9% 1000 ml Route: IV; Rate: 1000 ml; Site: right forearm; ph 11:00 Follow up: Response: No adverse reaction; IV Status: Completed infusion; IV Intake: ph 1000ml 10:19 Drug: fentaNYL (PF) 25 mcg Route: IVP; Site: right forearm; ph 10:45 Follow up: Response: No adverse reaction; Pain is decreased ph 11:27 Drug: NS 0.9% 1000 ml Route: IV; Rate: 1000 ml; Site: right forearm; ph 13:15 Follow up: Response: No adverse reaction; IV Status: Completed infusion; IV Intake: ph 1000ml 12:37 Drug: fentaNYL (PF) 25 mcg Route: IVP; Site: right forearm; ph 13:00 Follow up: Response: No adverse reaction; Pain is decreased ph 14:06 Drug: [place] 10 mg-325 mg 1 tabs Route: PO; hb 14:15 Follow up: Response: No adverse reaction ph Disposition: 15:17 Co-signature as Attending Physician, Jose Alfredo Plummer MD. rn Disposition: 02/05/20 13:40 Discharged to Home. Impression: Rheumatoid arthritis, unspecified, Dehydration, Pain in joint - bilateral knee, bilateral wrist, bilateral hips, bialteral shoulders. - Condition is Stable. - Discharge Instructions: Dehydration, Adult, Rheumatoid Arthritis, Rehydration, Adult. - Prescriptions for Tylenol- Codeine #3 300-30 mg Oral Tablet - take 2 tablets by ORAL route every 6 hours As needed; 20 tablet. - Medication Reconciliation Form, Thank You Letter, Antibiotic Education, Prescription Opioid Use form. - Follow up: Emergency Department; When: As needed; Reason: Worsening of condition. Follow up: Private Physician; When: 2 - 3 days; Reason: Recheck today's complaints, Continuance of care, Re-evaluation by your physician. - Problem is new. - Symptoms have improved. Signatures: Dispatcher [employer] EDJose Alfredo Mondragon MD MD rn Hall, Patricia, RN RN Antwon Renteria, INSULATION BOARD HEAD SAW OPERATOR INSULATION BOARD HEAD SAW OPERATOR pm1 Amena Holly RN RN hb Botello, Elizabeth eb Corrections: (The following items were deleted from the chart) 14:25 13:40 02/05/2020 13:40 Discharged to Home. Impression: Rheumatoid arthritis, eb unspecifiedDehydration; Pain in joint - bilateral knee, bilateral wrist, bilateral hips, bialteral shoulders. Condition is Stable. Forms are Medication Reconciliation Form, Thank You Letter, Antibiotic Education, Prescription Opioid Use. Follow up: Emergency Department; When: As needed; Reason: Worsening of condition. Follow up: Private Physician; When: 2 - 3 days; Reason: Recheck today's complaints, Continuance of care, Re-evaluation by your physician. Problem is new. Symptoms have improved. pm1
[2020-02-05] MEDS ORDERED: HYDROCODONE/APAP 10/325 TAB ONE (14:12)
[2020-02-05 14:33] VITALS: TEMP 98.7
[2020-02-05 14:39] VITALS: O2SAT 96
[2020-02-05 14:40] VITALS: BP 102/62
== END 2020-02-05 14:25 | disposition home or self-care (01) ==
LOC: ER 08:47
DX: M06.9 Rheumatoid arthritis, unspecified (principal); E86.0 Dehydration; M25.561 Pain in right knee; M25.532 Pain in left wrist; M25.531 Pain in right wrist; M25.552 Pain in left hip; M25.551 Pain in right hip; M25.512 Pain in left shoulder; M25.511 Pain in right shoulder; F17.210 Nicotine dependence, cigarettes, uncomplicated; E11.40 Type 2 diabetes mellitus with diabetic neuropathy, unspecified; Z79.82 Long term (current) use of aspirin; Z79.4 Long term (current) use of insulin; Z91.048 Other nonmedicinal substance allergy status
CPT/HCPCS: 96361; 85025; 36415; 80053; 96375; 96374; 99284; J3010 ×2; J7030 ×2; J2405; 81003; 81015

== ENCOUNTER 2020-07-13 11:07 | Emergency (ER) | payer OTHER ==
--- OUTSIDE RECORDS SUMMARY | 2020-07-13 11:09 | XMS REPORT | Continuity of Care Document ---
:1970 Author Organization [facility] Address [address] [place] [address] Dr. Yin [address] [place] [id number] Care Team Providers Name Role Phone Unavailable Unavailable Unavailable Problems This patient has no known problems. Allergies, Adverse Reactions, Alerts This patient has no known allergies or adverse reactions. Medications This patient has no known medications. Procedures This patient has no known procedures. Results This patient has no known results.
--- NOTE | 2020-07-13 15:06 | EDPHYS ---
Physician Documentation [facility] Name: Louise Copeland Age: 49 yrs Sex: Female : 1970 Arrival Date: 07/13/2020 Time: 11:09 Bed 7 Private MD: ED Physician Pablo Salazar HPI: 07/13 14:53 This 49 yrs old Female presents to ER via Ambulatory with complaints of Wound alicia Check. 14:53 Patient presents to ED for recheck of: burn, cellulitis. The affected area is on the alicia right ankle. Previous treatment: The patient was initially treated 3 weeks. Progress: The patient reports decreased. The patient has experienced similar episodes in the past, a few times. 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 iw Historical: - Allergies: 11:40 Folic Acid; iw - Home Meds: 11:44 Toujeo SoloStar 300 unit/mL (1.5 mL) subcutaneous inpn twice a day [Active]; Novolin R iw Sub-Q [Active]; tramadol 50 mg Oral tab three times a day [Active]; gabapentin 300 mg oral cap four times a day [Active]; montelukast 10 mg oral tab 1 tab once daily [Active]; esomeprazole magnesium 40 mg oral cpDR 1 cap once daily [Active]; albuterol sulfate 90 mcg/actuation Inhl HFAA 1 puff every 4 hours [Active]; fluconazole 150 mg Oral tab [Active]; Kevzara 200 mg every other week [Active]; prednisone 5 mg Oral tab twice a day [Active]; methotrexate sodium 2.5 mg Oral tab [Active]; - PMHx: 11:40 Diabetes - IDDM; neuropathy; Rheumatoid Arthritis; iw - PSHx: 11:40 Cholecystectomy; Tubal ligation; Hysterectomy; bladder; iw - Immunization history:: Adult Immunizations not up to date. - Social history:: Smoking status: Patient reports the use of cigarette tobacco products, smokes one-half pack cigarettes per day. ROS: 14:54 Constitutional: Negative for fever, chills, and weight loss, Eyes: Negative for injury, alicia pain, redness, and discharge, ENT: Negative for injury, pain, and discharge, Neck: Negative for injury, pain, and swelling, Cardiovascular: Negative for chest pain, palpitations, and edema, Respiratory: Negative for shortness of breath, cough, wheezing, and pleuritic chest pain, Abdomen/GI: Negative for abdominal pain, nausea, vomiting, diarrhea, and constipation, Back: Negative for injury and pain, : Negative for injury, bleeding, discharge, and swelling, MS/Extremity: Negative for injury and deformity, Neuro: Negative for headache, weakness, numbness, tingling, and seizure, Psych: Negative for depression, anxiety, suicide ideation, homicidal ideation, and hallucinations, Allergy/Immunology: Negative for hives, rash, and allergies, Endocrine: Negative for neck swelling, polydipsia, polyuria, polyphagia, and marked weight changes, Hematologic/Lymphatic: Negative for swollen nodes, abnormal bleeding, and unusual bruising. 14:54 Skin: Positive for erythema, ulceration, of the right ankle. Exam: 14:54 Constitutional: This is a well developed, well nourished patient who is awake, alert, alicia and in no acute distress. Head/Face: Normocephalic, atraumatic. Eyes: Pupils equal round and reactive to light, extra-ocular motions intact. Lids and lashes normal. Conjunctiva and sclera are non-icteric and not injected. Cornea within normal limits. Periorbital areas with no swelling, redness, or edema. ENT: Nares patent. No nasal discharge, no septal abnormalities noted. Tympanic membranes are normal and external auditory canals are clear. Oropharynx with no redness, swelling, or masses, exudates, or evidence of obstruction, uvula midline. Mucous membranes moist. Neck: Trachea midline, no thyromegaly or masses palpated, and no cervical lymphadenopathy. Supple, full range of motion without nuchal rigidity, or vertebral point tenderness. No Meningismus. Chest/axilla: Normal chest wall appearance and motion. Nontender with no deformity. No lesions are appreciated. Cardiovascular: Regular rate and rhythm with a normal S1 and S2. No gallops, murmurs, or rubs. Normal PMI, no JVD. No pulse deficits. Respiratory: Lungs have equal breath sounds bilaterally, clear to auscultation and percussion. No rales, rhonchi or wheezes noted. No increased work of breathing, no retractions or nasal flaring. Abdomen/GI: Soft, non-tender, with normal bowel sounds. No distension or tympany. No guarding or rebound. No evidence of tenderness throughout. Back: No spinal tenderness. No costovertebral tenderness. Full range of motion. Neuro: Awake and alert, GCS 15, oriented to person, place, time, and situation. Cranial nerves II-XII grossly intact. Motor strength 5/5 in all extremities. Sensory grossly intact. Cerebellar exam normal. Normal gait. Psych: Awake, alert, with orientation to person, place and time. Behavior, mood, and affect are within normal limits. 14:54 Musculoskeletal/extremity: ROM: full active range of motion, full passive range of motion, Pulses: noted to be 4+ in the bilateral radial, brachial, femoral, popliteal, posterior tibial and and dorsalis pedis arteries., Sensation intact. Joints: limited range of motion, pain at rest, painful range of motion, swelling, Weight bearing: able to fully bear weight. 14:54 Skin: cellulitis, that is mild, that is moderate, induration, that is moderate is noted, lesion(s), eschar. Vital Signs: 11:37 BP 142 / 76; Pulse 98; Resp 16; Temp 98.0; Pulse Ox 100% on R/A; iw 11:40 Weight 92.08 kg; Height 5 ft. 4 in. (162.56 cm); Pain 10/10; iw 13:00 BP 135 / 78; Pulse 86; Resp 16; Pulse Ox 100% ; bp 14:00 BP 128 / 64; Pulse 96; Resp 16; Pulse Ox 95% ; bp 15:45 BP 135 / 71; Pulse 88; Resp 16; Pulse Ox 100% ; bp 11:40 Body Mass Index 34.84 (92.08 kg, 162.56 cm) MDM: 12:57 Patient medically screened. [facility] 15:01 Differential diagnosis: cellulitis. Data reviewed: vital signs, nurses notes, [facility] radiologic studies, plain films. Data interpreted: quality assurance monitor body: rate is 96 beats/min, rhythm is regular, Pulse oximetry: on room air is 95 %. Test interpretation: by ED physician or midlevel provider: plain radiologic studies. Counseling: I had a detailed discussion with the patient and/or guardian regarding: the historical points, exam findings, and any diagnostic results supporting the discharge/admit diagnosis, lab results, the need for outpatient follow up, for definitive care, a general surgeon. Physician consultation: Bowen Suh MD and will see patient wound care on Thursday after noon, call Thursday for an appointment. 07/13 15:56 Order name: Glucose, Ancillary Testing [facility] 07/13 15:01 Order name: Ankle Right 3 View XRAY; Complete Time: 15:49 [facility] 07/13 14:49 Order name: Blood Glucose Level; Complete Time: 15:44 [facility] 07/13 14:49 Order name: Wound dressing; Complete Time: 15:38 [facility] Administered Medications: 15:15 Drug: Santyl 250 unit/g 1 application Route: Topical; Site: affected area; bp 15:15 Drug: [place] (7.5 mg-325 mg) 2 tabs Route: PO; bp 15:44 Follow up: Response: Pain is decreased bp Disposition: 07/13/20 15:05 Discharged to Home. Impression: Pressure ulcer of right ankle, Cellulitis and acute lymphangitis of other parts of limb, Type 2 diabetes mellitus. - Condition is Stable. - Discharge Instructions: Insect Bite, [id number], Insect Bite, Type 2 Diabetes Mellitus, Diagnosis, Adult, Cellulitis, Adult, [id number], Type 2 Diabetes Mellitus, Diagnosis, Adult, [id number]. - Prescriptions for Santyl 250 unit/gram Topical ointment - apply 1 application by TOPICAL route once daily; 60 gram. Clindamycin HCl 300 mg Oral Capsule - take 1 capsule by ORAL route every 6 hours for 7 days; 28 capsule. Tylenol- Codeine #3 300-30 mg Oral Tablet - take 1 tablet by ORAL route every 6 hours As needed; 20 tablet. Bactrim DS 800- 160 mg Oral Tablet - take 1 tablet by ORAL route every 12 hours for 10 days; 20 tablet. - Medication Reconciliation Form, Thank You Letter, Antibiotic Education, Prescription Opioid Use form. - Follow up: Private Physician; When: 2 - 3 days; Reason: Recheck today's complaints, Continuance of care, Re-evaluation by your physician. - Problem is new. - Symptoms have improved. Signatures: Dispatcher [employer] [facility] Pablo Salazar MD MD cha Williams, Irene, Fercho Covarrubias RN, RN RN bp Corrections: (The following items were deleted from the chart) 15:58 15:05 07/13/2020 15:05 Discharged to Home. Impression: Pressure ulcer of right ankle; bp Cellulitis and acute lymphangitis of other parts of limb; Type 2 diabetes mellitus. Condition is Stable. Forms are Medication Reconciliation Form, Thank You Letter, Antibiotic Education, Prescription Opioid Use. Follow up: Private Physician; When: 2 - 3 days; Reason: Recheck today's complaints, Continuance of care, Re-evaluation by your physician. Problem is new. Symptoms have improved. alicia
--- NOTE | 2020-07-13 15:06 | ER ---
Nurse's Notes [facility] Name: Louise Copeland Age: 49 yrs Sex: Female : 1970 Arrival Date: 07/13/2020 Time: 11:09 Bed 7 Private MD: Diagnosis: Pressure ulcer of right ankle;Cellulitis and acute lymphangitis of other parts of limb;Type 2 diabetes mellitus Presentation: 07/13 11:37 Chief complaint: Patient states: has chronic wound to right lateral ankle, being iw treated with clindamycin and Bactrim, still not healing, was sent by Dr. John ZHANG for possible admission and IV abx, wound has been there for three weeks. Coronavirus screen: At this time, the client does not indicate any symptoms associated with coronavirus-19. Ebola Screen: Patient negative for fever greater than or equal to 101.5 degrees Fahrenheit, and additional compatible Ebola Virus Disease symptoms Patient denies exposure to infectious person. Patient denies travel to an Ebola-affected area in the 21 days before illness onset. No symptoms or risks identified at this time. Initial Sepsis Screen: Does the patient meet any 2 criteria? No. Patient's initial sepsis screen is negative. Does the patient have a suspected source of infection? No. Patient's initial sepsis screen is negative. Risk Assessment: Do you want to hurt yourself or someone else? Patient reports no desire to harm self or others. Onset of symptoms was June 27, 2020. 11:37 Method Of Arrival: Ambulatory iw 11:37 Acuity: RUMA 3 iw Triage Assessment: 12:45 General: Appears in no apparent distress. uncomfortable, obese, Behavior is bp cooperative, appropriate for age, anxious. Pain: Complains of pain in right ankle. EENT: No deficits noted. Neuro: No deficits noted. Cardiovascular: No deficits noted. Respiratory: No deficits noted. GI: No signs and/or symptoms were reported involving the gastrointestinal system. : No signs and/or symptoms were reported regarding the genitourinary system. Derm: Wound noted right ankle. Musculoskeletal: No deficits noted. 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 iw Historical: - Allergies: 11:40 Folic Acid; iw - Home Meds: 11:44 Toujeo SoloStar 300 unit/mL (1.5 mL) subcutaneous inpn twice a day [Active]; Novolin R iw Sub-Q [Active]; tramadol 50 mg Oral tab three times a day [Active]; gabapentin 300 mg oral cap four times a day [Active]; montelukast 10 mg oral tab 1 tab once daily [Active]; esomeprazole magnesium 40 mg oral cpDR 1 cap once daily [Active]; albuterol sulfate 90 mcg/actuation Inhl HFAA 1 puff every 4 hours [Active]; fluconazole 150 mg Oral tab [Active]; Kevzara 200 mg every other week [Active]; prednisone 5 mg Oral tab twice a day [Active]; methotrexate sodium 2.5 mg Oral tab [Active]; - PMHx: 11:40 Diabetes - IDDM; neuropathy; Rheumatoid Arthritis; iw - PSHx: 11:40 Cholecystectomy; Tubal ligation; Hysterectomy; bladder; iw - Immunization history:: Adult Immunizations not up to date. - Social history:: Smoking status: Patient reports the use of cigarette tobacco products, smokes one-half pack cigarettes per day. Screenin:45 Abuse screen: Denies threats or abuse. Denies injuries from another. Nutritional bp screening: No deficits noted. Tuberculosis screening: No symptoms or risk factors identified. Fall Risk None identified. Assessment: 12:45 General: SEE TRIAGE NOTE. bp 14:00 Reassessment: Patient appears in no apparent distress at this time. No changes from bp previously documented assessment. Patient and/or family updated on plan of care and expected duration. Pain level reassessed. Patient is alert, oriented x 3, equal unlabored respirations, skin warm/dry/pink. 15:00 Reassessment: Patient appears in no apparent distress at this time. No changes from bp previously documented assessment. Patient and/or family updated on plan of care and expected duration. Pain level reassessed. Patient is alert, oriented x 3, equal unlabored respirations, skin warm/dry/pink. XRAY AT B/S. MED PENDING FROM PHARMACY. 15:57 Reassessment: PT D/C HOME AMBULATORY WITH FAMILY, DX WITH PRESSURE ULCER AND CELLULITIS bp OF R ANKLE. Vital Signs: 11:37 BP 142 / 76; Pulse 98; Resp 16; Temp 98.0; Pulse Ox 100% on R/A; iw 11:40 Weight 92.08 kg; Height 5 ft. 4 in. (162.56 cm); Pain 10/10; iw 13:00 BP 135 / 78; Pulse 86; Resp 16; Pulse Ox 100% ; bp 14:00 BP 128 / 64; Pulse 96; Resp 16; Pulse Ox 95% ; bp 15:45 BP 135 / 71; Pulse 88; Resp 16; Pulse Ox 100% ; bp 11:40 Body Mass Index 34.84 (92.08 kg, 162.56 cm) iw ED Course: 11:09 Patient arrived in ED. ag5 11:39 Triage completed. iw 11:40 Arm band placed on. iw 12:40 Fercho Paredes, RN is Primary Nurse. bp 12:45 Patient has correct armband on for positive identification. Bed in low position. Call bp light in reach. Side rails up X2. 12:57 Pablo Salazar MD is Attending Physician. alicia 15:21 Ankle Right 3 View XRAY Sent. bp 15:25 Ankle Right 3 View XRAY In Process Unspecified. EDMS 15:57 No provider procedures requiring assistance completed. Patient did not have IV access bp during this emergency room visit. Administered Medications: 15:15 Drug: Santyl 250 unit/g 1 application Route: Topical; Site: affected area; bp 15:15 Drug: [place] (7.5 mg-325 mg) 2 tabs Route: PO; bp 15:44 Follow up: Response: Pain is decreased bp Outcome: 15:05 Discharge ordered by . alicia 15:57 Discharged to home ambulatory. bp 15:57 Condition: stable 15:57 Discharge instructions given to patient, Instructed on discharge instructions, follow up and referral plans. medication usage, wound care, Demonstrated understanding of instructions, follow-up care, medications, wound care, Prescriptions given X 4. 15:58 Patient left the ED. bp Signatures: Dispatcher [employer] EDMS Pablo Salazar MD MD cha Williams, Irene, RN RN iw Fercho Paredes, TARIQ RN Jacky Castillo ag5 Corrections: (The following items were deleted from the chart) 11:44 11:37 BP 119 / 89; Pulse 98bpm; Resp 16bpm; Pulse Ox 100% RA; Temp 98.0F; iw iw
--- NOTE | 2020-07-13 15:33 | RAD REPORT ---
EXAM DESCRIPTION: RAD - Ankle Right 3 View - 07/13/2020 3:25 pm CLINICAL HISTORY: PAIN COMPARISON: No comparisons FINDINGS: Mild soft tissue swelling is seen about the ankle. No acute fractures seen. Tiny calcaneal spurs. Small soft tissue wound is seen along the lateral aspect of the ankle. No underlying osteomye litis.
[2020-07-13] MEDS ORDERED: HYDROCODONE/APAP 7.5/325 MG TAB ONE (15:46)
[2020-07-13] MEDS ORDERED: COLLAGENASE 30 GM OINTMENT TOP ONE (16:00)
[2020-07-13 17:28] VITALS: TEMP 98
[2020-07-13 17:43] VITALS: BP 135/71; O2SAT 100
== END 2020-07-13 15:58 | disposition home or self-care (01) ==
LOC: ER 11:07
DX: L89.519 Pressure ulcer of right ankle, unspecified stage (principal); L03.115 Cellulitis of right lower limb; I89.1 Lymphangitis; E11.9 Type 2 diabetes mellitus without complications; F17.210 Nicotine dependence, cigarettes, uncomplicated
CPT/HCPCS: 82947; 99283; J3590

== ENCOUNTER 2021-03-05 17:56 | Emergency (ER) | payer OTHER ==
--- OUTSIDE RECORDS SUMMARY | 2021-03-05 18:07 | XMS REPORT | Continuity of Care Document ---
:1970 Author Organization [facility] t Address [address] [place] [address] Dr. Yin [address] [place] [id number] Care Team Providers Name Role Phone Unavailable Unavailable Unavailable Problems This patient has no known problems. Allergies, Adverse Reactions, Alerts This patient has no known allergies or adverse reactions. Medications This patient has no known medications. Procedures This patient has no known procedures. Results This patient has no known results.
[2021-03-05] MEDS ORDERED: FAMOTIDINE 20 MG TAB ONE (20:36)
[2021-03-05] MEDS ORDERED: CEPHALEXIN 250 MG CAP ONE (20:36)
[2021-03-05] MEDS ORDERED: DIPHENHYDRAMINE 25 MG TAB/CAP ONE (20:36)
[2021-03-05] MEDS ORDERED: SMZ./TMP. 800/160 MG TABLET ONE (20:36)
--- NOTE | 2021-03-05 20:40 | ER ---
Nurse's Notes [facility] Name: Louise Copeland Age: 50 yrs Sex: Female : 1970 Arrival Date: 03/05/2021 Time: 17:58 Bed 23 Private MD: Diagnosis: Rash and other nonspecific skin eruption;Pruritis Presentation: 03/05 18:06 Chief complaint: Patient states: "I think I may have staph everywhere, from my mid sv thighs up to my head." Started a couple of months ago. Coronavirus screen: Client denies travel out of the [place] in the last 14 days. At this time, the client does not indicate any symptoms associated with coronavirus-19. Ebola Screen: No symptoms or risks identified at this time. Risk Assessment: Do you want to hurt yourself or someone else? Patient reports no desire to harm self or others. Onset of symptoms was 2020. 18:06 Method Of Arrival: Ambulatory sv 18:06 Acuity: RUMA 3 sv 18:08 Initial Sepsis Screen: Does the patient meet any 2 criteria? No. Patient's initial sv sepsis screen is negative. Does the patient have a suspected source of infection? No. Patient's initial sepsis screen is negative. Triage Assessment: 18:08 General: Appears in no apparent distress. uncomfortable, Behavior is calm, cooperative, sv appropriate for age. Neuro: Level of Consciousness is awake, alert, obeys commands, Oriented to person, place, time, situation. Respiratory: Respiratory effort is even, unlabored. 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 - Social history:: Smoking status: . Screenin:02 Abuse screen: Denies threats or abuse. Denies injuries from another. Nutritional ld1 screening: No deficits noted. Tuberculosis screening: No symptoms or risk factors identified. Fall Risk None identified. Assessment: 20:02 General: Appears in no apparent distress. uncomfortable, Behavior is calm, cooperative, ld1 appropriate for age. Pain: Complains of pain in back, buttocks, chest, abdomen, pelvis, right foot, left foot, right arm and left arm Pain does not radiate. Pain currently is 7 out of 10 on a pain scale. Quality of pain is described as tingling, throbbing, Pain began two weeks Is continuous. Neuro: Level of Consciousness is awake, alert, obeys commands, Oriented to person, place, time, situation. Cardiovascular: Capillary refill < 3 seconds Patient's skin is warm and dry. Respiratory: Airway is patent Respiratory effort is even, unlabored, Respiratory pattern is regular, symmetrical. GI: Abdomen is round non-distended. : No signs and/or symptoms were reported regarding the genitourinary system. EENT: No signs and/or symptoms were reported regarding the EENT system. Derm: Rash noted that is draining clear fluid, on back, buttocks, chest, abdomen, pelvis, right arm, left arm, right leg and left leg Reports itching, pain tingling. Musculoskeletal: No deficits noted. 20:46 Reassessment: Patient appears in no apparent distress at this time. No changes from ld1 previously documented assessment. Patient and/or family updated on plan of care and expected duration. Pain level reassessed. Vital Signs: 18:08 BP 138 / 80; Pulse 74; Resp 16; Temp 97.9; Pulse Ox 100% ; Weight 93.89 kg; Height 5 sv ft. 3 in. (160.02 cm); 18:08 Body Mass Index 36.67 (93.89 kg, 160.02 cm) sv ED Course: 17:58 Patient arrived in ED. rg4 18:06 Arm band placed on. sv 18:07 Triage completed. sv 19:35 Sloan Sykes MD is Attending Physician. 7 19:36 Constance Trent, TARIQ is Primary Nurse. ld1 20:02 Patient has correct armband on for positive identification. Bed in low position. Call ld1 light in reach. Side rails up X2. Pulse ox on. NIBP on. Door closed. Noise minimized. Warm blanket given. 20:02 No provider procedures requiring assistance completed. ld1 20:39 Angela Mehta MD is Referral Physician. mh7 20:39 Yadiel Fong MD is Referral Physician. [facility] 20:46 Patient did not have IV access during this emergency room visit. intact, bleeding ld1 controlled, No redness/swelling at site. Administered Medications: 20:21 Drug: KeFLEX (cephalexin) 500 mg Route: PO; ld1 20:21 Follow up: Response: No adverse reaction ld1 20:22 Drug: Pepcid (famotidine) 20 mg Route: PO; ld1 20:22 Follow up: Response: No adverse reaction ld1 20:22 Drug: Benadryl (diphenhydrAMINE) 25 mg Route: PO; ld1 20:22 Follow up: Response: No adverse reaction ld1 20:22 Drug: Bactrim (trimethoprim-sulfamethoxazole) (160 mg-800 mg (DS) 1 tablet Route: PO; ld1 20:22 Follow up: Response: No adverse reaction ld1 Outcome: 20:40 Discharge ordered by . abhilash 20:54 Discharged to home ambulatory. ld1 20:54 Condition: stable 20:54 Discharge instructions given to patient, family, Instructed on discharge instructions, follow up and referral plans. medication usage, Demonstrated understanding of instructions, follow-up care, medications. 20:55 Patient left the ED. ld1 Signatures: Mitali Vega, RN Arlet Trujillo 4 Sloan Sykes MD MD [facility] Constance Trent RN RN ld1
--- NOTE | 2021-03-05 20:41 | EDPHYS ---
Physician Documentation [facility] Name: Louise Copeland Age: 50 yrs Sex: Female : 1970 Arrival Date: 03/05/2021 Time: 17:58 Bed 23 Private MD: ED Physician Sloan Sykes HPI: 03/05 20:32 This 50 yrs old Female presents to ER via Ambulatory with complaints of mh7 Abscess. 20:33 The patient's rash thought to be caused by an unknown cause. The rash is located on the mh7 left leg and right leg and left arm and right arm and left foot and right foot and abdomen and chest and buttocks and back. The rash can be described as erythematous, papular, pustular. Onset: The symptoms/episode began/occurred 3 month(s) ago. Associated signs and symptoms: Pertinent positives: itching, Pertinent negatives: burning sensation, difficulty breathing, fever, nausea, Pain swelling of lips, swelling of throat, swelling of tongue, vomiting, wheezing. Severity of symptoms: At their worst the symptoms were moderate 14 day(s) ago, in the emergency department the symptoms have improved moderately. States that rash started about 3 months ago after being started on Bupropion and Levocerterizine. 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 - Social history:: Smoking status: . ROS: 20:33 Constitutional: Negative for fever, chills, and weight loss, Eyes: Negative for injury, mh7 pain, redness, and discharge, ENT: Negative for injury, pain, and discharge, Neck: Negative for injury, pain, and swelling, Cardiovascular: Negative for chest pain, palpitations, and edema, Respiratory: Negative for shortness of breath, cough, wheezing, and pleuritic chest pain, Abdomen/GI: Negative for abdominal pain, nausea, vomiting, diarrhea, and constipation, Back: Negative for injury and pain, : Negative for injury, bleeding, discharge, and swelling, MS/Extremity: Negative for injury and deformity, Neuro: Negative for headache, weakness, numbness, tingling, and seizure, Psych: Negative for depression, anxiety, suicide ideation, homicidal ideation, and hallucinations, Endocrine: Negative for neck swelling, polydipsia, polyuria, polyphagia, and marked weight changes, Hematologic/Lymphatic: Negative for swollen nodes, abnormal bleeding, and unusual bruising. Exam: 20:33 Constitutional: This is a well developed, well nourished patient who is awake, alert, mh7 and in no acute distress. Head/Face: Normocephalic, atraumatic. Eyes: Pupils equal round and reactive to light, extra-ocular motions intact. Lids and lashes normal. Conjunctiva and sclera are non-icteric and not injected. Cornea within normal limits. Periorbital areas with no swelling, redness, or edema. ENT: Nares patent. No nasal discharge, no septal abnormalities noted. Tympanic membranes are normal and external auditory canals are clear. Oropharynx with no redness, swelling, or masses, exudates, or evidence of obstruction, uvula midline. Mucous membranes moist. Neck: Trachea midline, no thyromegaly or masses palpated, and no cervical lymphadenopathy. Supple, full range of motion without nuchal rigidity, or vertebral point tenderness. No Meningismus. Chest/axilla: Normal chest wall appearance and motion. Nontender with no deformity. No lesions are appreciated. Cardiovascular: Regular rate and rhythm with a normal S1 and S2. No gallops, murmurs, or rubs. Normal PMI, no JVD. No pulse deficits. Respiratory: Lungs have equal breath sounds bilaterally, clear to auscultation and percussion. No rales, rhonchi or wheezes noted. No increased work of breathing, no retractions or nasal flaring. Abdomen/GI: Soft, non-tender, with normal bowel sounds. No distension or tympany. No guarding or rebound. No evidence of tenderness throughout. Back: No spinal tenderness. No costovertebral tenderness. Full range of motion. 20:33 MS/ Extremity: Pulses equal, no cyanosis. Neurovascular intact. Full, normal range of motion. Neuro: Awake and alert, GCS 15, oriented to person, place, time, and situation. Cranial nerves II-XII grossly intact. Motor strength 5/5 in all extremities. Sensory grossly intact. Cerebellar exam normal. Normal gait. Psych: Awake, alert, with orientation to person, place and time. Behavior, mood, and affect are within normal limits. 20:33 Skin: rash a mild rash is noted, rash can be described as erythematous, papular, pustular, no petechiae or purpura, on the left leg and right leg and left arm and right arm and left foot and right foot and abdomen and chest and buttocks and back. Vital Signs: 18:08 BP 138 / 80; Pulse 74; Resp 16; Temp 97.9; Pulse Ox 100% ; Weight 93.89 kg; Height 5 sv ft. 3 in. (160.02 cm); 18:08 Body Mass Index 36.67 (93.89 kg, 160.02 cm) sv MDM: 20:33 Differential diagnosis: impetigo, allergic reaction, drug reaction, nonspecific rash. [facility] Data reviewed: vital signs, nurses notes. 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 Response to treatment: the patient's symptoms have markedly improved after treatment. 20:40 Patient medically screened. [facility] Administered Medications: 20:21 Drug: KeFLEX (cephalexin) 500 mg Route: PO; ld1 20:21 Follow up: Response: No adverse reaction ld1 20:22 Drug: Pepcid (famotidine) 20 mg Route: PO; ld1 20:22 Follow up: Response: No adverse reaction ld1 20:22 Drug: Benadryl (diphenhydrAMINE) 25 mg Route: PO; ld1 20:22 Follow up: Response: No adverse reaction ld1 20:22 Drug: Bactrim (trimethoprim-sulfamethoxazole) (160 mg-800 mg (DS) 1 tablet Route: PO; ld1 20:22 Follow up: Response: No adverse reaction ld1 Disposition Summary: 03/05/21 20:40 Discharge Ordered Location: Home [facility] Problem: an ongoing problem [facility] Symptoms: have improved [facility] Condition: Stable [facility] Diagnosis - Rash and other nonspecific skin eruption [facility] - Pruritis [facility] Followup: [facility] - With: Private Physician - When: 1 - 2 days - Reason: Worsening of condition, Recheck today's complaints, Continuance of care, Re-evaluation by your physician Followup: [facility] - With: Angela Mehta MD - When: 1 - 2 days - Reason: Worsening of condition, Recheck today's complaints Followup: [facility] - With: Yadiel Fong MD - When: 1 - 2 days - Reason: Worsening of condition, Recheck today's complaints Discharge Instructions: - Discharge Summary Sheet [facility] - Rash, Adult, [id number] [facility] - Pruritus [facility] Forms: - Medication Reconciliation Form [facility] - Thank You Letter [facility] - Antibiotic Education [facility] - Prescription Opioid Use [facility] Prescriptions: - Benadryl 25 mg Oral Capsule - take 1 capsule by ORAL route every 6 hours As needed; 30 tablet; Refills: 0, [facility] Product Selection Permitted - Cephalexin 500 mg Oral Capsule - take 1 capsule by ORAL route every 6 hours for 10 days; 40 capsule; Refills: 0, [facility] Product Selection Permitted - Pepcid 20 mg Oral Tablet - take 1 tablet by ORAL route every 12 hours for 5 days; 10 tablet; Refills: 0, [facility] Product Selection Permitted - Miconazole 7 2 % Vaginal Cream - insert 1 applicatorful by VAGINAL route At bedtime for 7 days; 45 gram; [facility] Refills: 0, Product Selection Permitted - Bactrim DS 800-160 mg Oral Tablet - take 1 tablet by ORAL route every 12 hours for 10 days; 20 tablet; Refills: 0, [facility] Product Selection Permitted Signatures: Mitali Vega, RN RN sv Sloan Sykes MD [facility] Constance Trent RN RN ld1
[2021-03-05 21:05] VITALS: BP 138/80; TEMP 97.9; O2SAT 100
== END 2021-03-05 20:55 | disposition home or self-care (01) ==
LOC: ER 17:56
DX: L29.9 Pruritus, unspecified (principal); Z88.8 Allergy status to other drugs, medicaments and biological substances
CPT/HCPCS: 99283

== ENCOUNTER 2022-04-16 11:09 | Emergency (ER) | payer OTHER ==
--- OUTSIDE RECORDS SUMMARY | 2022-04-16 11:11 | XMS REPORT | Continuity of Care Document ---
:1970 Author Organization [facility] t Address [address] [place] [address] Dr. Yin [address] [place] [id number] Care Team Providers Name Role Phone Unavailable Unavailable Unavailable Problems This patient has no known problems. Allergies, Adverse Reactions, Alerts This patient has no known allergies or adverse reactions. Medications This patient has no known medications. Procedures This patient has no known procedures. Results This patient has no known results.
--- NOTE | 2022-04-16 12:21 | RAD REPORT ---
EXAM DESCRIPTION: RAD - Wrist Left 3 View - 04/16/2022 11:47 am CLINICAL HISTORY: PAIN Pain COMPARISON: Wrist Left 2 View dated 02/13/2020 FINDINGS: Advanced radiocarpal arthritic changes are present. Moderate soft tissue swelling is noted along the dorsum of the wrist. No fracture evident.
--- NOTE | 2022-04-16 12:32 | ER ---
Nurse's Notes [facility] Name: Louise Copeland Age: 51 yrs Sex: Female : 1970 Arrival Date: 04/16/2022 Time: 11:11 Bed 11 Private MD: Diagnosis: Pain in left wrist;Scabies Presentation: 04/16 11:15 Chief complaint: Patient states: Pt presents with wrist brace on left wrist and injured iw wrist back in January with progressively getting worse. Coronavirus screen: Vaccine status: Patient reports receiving the 2nd dose of the covid vaccine. Client denies travel out of the [place] in the last 14 days. Ebola Screen: Patient negative for fever greater than or equal to 101.5 degrees Fahrenheit, and additional compatible Ebola Virus Disease symptoms Patient denies exposure to infectious person. Patient denies travel to an Ebola-affected area in the 21 days before illness onset. Initial Sepsis Screen: Does the patient meet any 2 criteria? No. Patient's initial sepsis screen is negative. Does the patient have a suspected source of infection? No. Patient's initial sepsis screen is negative. Risk Assessment: Do you want to hurt yourself or someone else? Patient reports no desire to harm self or others. 11:15 Method Of Arrival: Ambulatory iw 11:15 Acuity: RUMA 4 iw Vital Signs: 11:15 BP 132 / 71; Pulse 72; Resp 16; Temp 98.4; Pulse Ox 100% ; Weight 86.18 kg; Height 5 iw ft. 3 in. (160.02 cm); 11:15 Body Mass Index 33.66 (86.18 kg, 160.02 cm) ED Course: 11:11 Patient arrived in ED. rg4 11:12 Seth Stockton is PHCP. jl9 11:12 Morgan Mims DO is Attending Physician. jl9 11:18 Triage completed. iw 11:49 XRAY Wrist LEFT 3 view In Process Unspecified. EDMS Administered Medications: No medications were administered Outcome: 12:31 Discharge ordered by . [email or web address] 13:12 Patient left the ED. Signatures: Dispatcher [employer] EDMS Maria Luisa Dean, RN RN iw Arlet Melvin 4 Seth Stockton jl9
--- NOTE | 2022-04-16 12:32 | EDPHYS ---
Physician Documentation [facility] Name: Louise Copeland Age: 51 yrs Sex: Female : 1970 Arrival Date: 04/16/2022 Time: 11:11 Bed 11 Private MD: ED Physician Morgan Mims HPI: 04/16 11:28 This 51 yrs old Female presents to ER via Ambulatory with complaints of Wrist jl9 Pain. Patient reports falling 2 months ago and injuring it. Patient also here for possible scabies.. 11:28 The patient or guardian reports pain. The complaints affect the left wrist diffusely. jl9 Context: resulted from a fall. Onset: The symptoms/episode began/occurred 2 month(s) ago. Modifying factors: the symptoms are aggravated by movement. Associated signs and symptoms: Pertinent positives: Pertinent negatives: cyanosis distally, numbness distally, tingling distally. Compartment Syndrome negative for numbness, tingling. The patient has experienced a previous episode. ROS: 11:30 Constitutional: Negative for fever, chills, and weight loss, Eyes: Negative for injury, jl9 pain, redness, and discharge, ENT: Negative for injury, pain, and discharge, Neck: Negative for injury, pain, and swelling, Cardiovascular: Negative for chest pain, palpitations, and edema, Respiratory: Negative for shortness of breath, cough, wheezing, and pleuritic chest pain, Abdomen/GI: Negative for abdominal pain, nausea, vomiting, diarrhea, and constipation, Back: Negative for injury and pain, : Negative for injury, bleeding, discharge, and swelling. 11:30 Neuro: Negative for headache, weakness, numbness, tingling, and seizure, Psych: Negative for depression, anxiety, suicide ideation, homicidal ideation, and hallucinations, Allergy/Immunology: Negative for hives, rash, and allergies, Endocrine: Negative for neck swelling, polydipsia, polyuria, polyphagia, and marked weight changes, Hematologic/Lymphatic: Negative for swollen nodes, abnormal bleeding, and unusual bruising. 11:30 MS/extremity: Positive for pain, of the left hand. 11:30 Skin: Positive for rash, diffusely. Exam: 11:31 Hand exam: Exam is positive for pain, ROM: limited active range of motion due to pain, jl9 in the left hand, Circulation is intact in all extremities. sensation intact. 11:31 Head/Face: Normocephalic, atraumatic. Eyes: Pupils equal round and reactive to light, jl9 extra-ocular motions intact. Lids and lashes normal. Conjunctiva and sclera are non-icteric and not injected. Cornea within normal limits. Periorbital areas with no swelling, redness, or edema. ENT: Mucous membranes moist. Neck: Trachea midline, no thyromegaly or masses palpated, and no cervical lymphadenopathy. Supple, full range of motion without nuchal rigidity, or vertebral point tenderness. No Meningismus. Chest/axilla: Normal chest wall appearance and motion. Nontender with no deformity. No lesions are appreciated. Cardiovascular: Regular rate and rhythm with a normal S1 and S2. No gallops, murmurs, or rubs. Normal PMI, no JVD. No pulse deficits. Respiratory: Lungs have equal breath sounds bilaterally, clear to auscultation and percussion. No rales, rhonchi or wheezes noted. No increased work of breathing, no retractions or nasal flaring. Abdomen/GI: Soft, non-tender, with normal bowel sounds. No distension or tympany. No guarding or rebound. No evidence of tenderness throughout. Back: No spinal tenderness. No costovertebral tenderness. Full range of motion. 11:31 Neuro: Awake and alert, GCS 15, oriented to person, place, time, and situation. Cranial nerves II-XII grossly intact. Motor strength 5/5 in all extremities. Sensory grossly intact. Cerebellar exam normal. Normal gait. Psych: Awake, alert, with orientation to person, place and time. Behavior, mood, and affect are within normal limits. 11:31 Constitutional: The patient appears in no acute distress, alert, awake. 11:31 Skin: rash a moderate rash is noted, rash can be described as erythematous, urticarial, and is diffusely located. Vital Signs: 11:15 BP 132 / 71; Pulse 72; Resp 16; Temp 98.4; Pulse Ox 100% ; Weight 86.18 kg; Height 5 iw ft. 3 in. (160.02 cm); 11:15 Body Mass Index 33.66 (86.18 kg, 160.02 cm) iw MDM: 11:22 Patient medically screened. jl9 11:32 Data reviewed: vital signs, nurses notes. jl9 12:30 Counseling: I had a detailed discussion with the patient and/or guardian regarding: the jl9 historical points, exam findings, and any diagnostic results supporting the discharge/admit diagnosis, radiology results, the need for outpatient follow up, to return to the emergency department if symptoms worsen or persist or if there are any questions or concerns that arise at home. 04/16 11:18 Order name: XRAY Wrist LEFT 3 view; Complete Time: 12:22 jl9 Administered Medications: No medications were administered Disposition: 18:56 Co-signature as Attending Physician, Morgan Mims DO I was immediately available on-site ms3 in the Emergency Department for consultation in the care of the patient.. Disposition Summary: 04/16/22 12:31 Discharge Ordered Location: Home jl9 Condition: Stable jl9 Diagnosis - Pain in left wrist jl9 - Scabies jl9 Followup: jl9 - With: Private Physician - When: 1 - 2 days - Reason: Recheck today's complaints, Continuance of care, Re-evaluation by your physician Discharge Instructions: - Discharge Summary Sheet jl9 - Wrist Pain, Adult, [id number] jl9 - Scabies, Adult jl9 Forms: - Medication Reconciliation Form jl9 - Thank You Letter jl9 - Antibiotic Education jl9 - Prescription Opioid Use jl9 Prescriptions: - permethrin 5 % Topical cream - apply 1 application by TOPICAL route one time leave on for 8-14 hr, then remove jl9 by thorough washing; 1 tube; Refills: 0, Product Selection Permitted - Ibuprofen 800 mg Oral Tablet - take 1 tablet by ORAL route every 12 hours As needed take with food; 20 tablet; jl9 Refills: 0, Product Selection Permitted Signatures: Dispatcher [employer] EDSD Morgan Mims DO DO ms3 Seth Stockton jl9 Corrections: (The following items were deleted from the chart) 11:30 11:28 This 51 yrs old Female presents to ER via Ambulatory with complaints of jl9 Wrist Pain. Patient reports falling 2 months ago and injuring it. . jl9
[2022-04-16 13:33] VITALS: BP 132/71; TEMP 98.4; O2SAT 100
== END 2022-04-16 13:12 | disposition home or self-care (01) ==
LOC: ER 11:09
DX: M25.532 Pain in left wrist (principal); B86 Scabies

== ENCOUNTER → 2022-10-22 | Day surgery (SDC) | payer OTHER ==
--- NOTE | 2022-10-22 11:33 | RAD REPORT ---
EXAM DESCRIPTION: US - Guided FNA Non Breast - 10/22/2022 11:06 am CLINICAL HISTORY: E04.1 COMPARISON: No comparisons FINDINGS: Preoperative diagnosis: Right thyroid nodule. Post operative diagnosis: Same. Conscious Sedation: None Fluoroscopy time: None Contrast used: None Estimated blood loss: Minimal Specimens:3 fine-needle aspirates Ultrasound-guided fine-needle aspiration of a right thyroid nodule performed. IMPRESSION: Technically successful ultrasound-guided fine-needle aspiration of a right thyroid nodul e. No me complications.
== END ==
LOC: FNA 08:00
PROVIDERS: ATTEND Otolaryngology Pediatric Otolaryngology
PROC: 0GBH3ZX Excision of Right Thyroid Gland Lobe, Percutaneous Approach, Diagnostic (ICD-10-PCS; principal; 2022-10-22)
DX: E04.1 Nontoxic single thyroid nodule (principal)
CPT/HCPCS: 88162